=== PATIENT | male | born 1935 | race Two or more races ===

== ENCOUNTER 2018-09-08 07:24 | Inpatient (IN) | payer MEDICARE, MEDICAID ==
[~2018-09-08] VITALS: Ht 160 cm; Wt 82.1 kg
--- NOTE | 2018-09-08 07:39 | NUR ---
ED Nurse Note: Pt from home came in due to SOB and coughing with pleghm started sunday. Audible wheezing noted. Pt is AAO x4, ambulatory with SOB at rest.
[2018-09-08] MEDS ORDERED: ATENOLOL100 MG ORAL (07:41)
[2018-09-08] MEDS ORDERED: OMEPRAZOLE40 M1 ORAL (07:41)
[2018-09-08] MEDS ORDERED: CRESTOR10 M2 ORAL (07:41)
[2018-09-08] MEDS ORDERED: BUPROPION XL150 MG ORAL (07:43)
[2018-09-08] MEDS ORDERED: Albuterol/Ipratropium 3ml neb HHN ONE ×2 (07:45→09:15)
--- NOTE | 2018-09-08 07:49 | Emergency Room Report ---
History of Present Illness General Chief Complaint: Upper Respiratory Illness Source: Patient Present Illness HPI Patient is an 83-year-old male presented after increased difficulty breathing for approximately 3 days. Patient was noted to have increased chest tightness. This is been present for several days but had worsened this morning. He reportedly had been having a nonproductive cough with increased congestion. He denies any prior history of lung disease. Patient denies any productive cough. He is not a smoker. He denies any prior cardiac disease. He denies any leg pain or swelling. He is followed by Dr. Lam Allergies: Coded Allergies: No Known Allergies (Unverified , 09/08/18) Patient History Past Medical History: see triage record Reviewed Nursing Documentation: PMH: Agreed; PSxH: Agreed Nursing Documentation-PMH Past Medical History: No History, Except For Hx Cardiac Problems: Yes - high cholesterol Hx Hypertension: Yes Hx Gastrointestinal Problems: Yes Review of Systems All Other Systems: negative except mentioned in HPI Physical Exam Vital Signs Date Time Temp Pulse Resp B/P (MAP) Pulse Ox O2 Delivery O2 Flow Rate FiO2 09/08/18 07:29 98.2 91 24 132/73 95 Room Air Sp02 EP Interpretation: reviewed, normal General Appearance: normal inspection, alert, GCS 15, mild distress Head: atraumatic ENT: normal ENT inspection, hearing grossly normal, normal voice Neck: normal inspection, full range of motion, supple, no bony tend Respiratory: normal inspection, no respiratory distress, no retraction, wheezing Cardiovascular #1: regular rate, rhythm, no edema Gastrointestinal: normal inspection, normal bowel sounds, non tender, soft, no guarding, no hernia Genitourinary: no CVA tenderness Musculoskeletal: normal inspection, back normal, normal range of motion Neurologic: normal inspection, alert, oriented x3, responsive, yarn hauler III-XII nml as tested, speech normal Psychiatric: normal inspection, judgement/insight normal, mood/affect normal Skin: normal inspection, normal color, no rash Medical Decision Making Diagnostic Impression: Primary Impression: Pneumonitis Additional Impression: SOB (shortness of breath) ER Course . Patient presented for shortness of breath. Differential included but was not limited to anemia, pneumonia, pneumothorax, myocardial infarction, pericardial effusion, congestive heart failure, acidosis. Because of complexity of patient' s case laboratory testing and imaging studies were ordered. Because of complexity of patient's case laboratory testing and imaging studies were ordered. Patient was noted to have unremarkable laboratory testing. Patient continued to be tachypneic as well as having increased wheezing. Patient denied any prior history of smoking or COPD. Chest x-ray read by radiology showed some mild vascular congestion as well as cardiomegaly. Patient was given breathing treatments as well as steroids. Dr. Sim Bello was contacted for inpatient management due to panel physician. Labs Test 09/08/18 08:38 09/08/18 14:35 09/09/18 21:19 09/10/18 06:30 White Blood Count 9.3 K/UL (4.8-10.8) 5.4 K/UL (4.8-10.8) Red Blood Count 4.90 M/UL (4.70-6.10) 4.41 M/UL (4.70-6.10) Hemoglobin 15.0 G/DL (14.2-18.0) 13.5 G/DL (14.2-18.0) Hematocrit 45.0 % (42.0-52.0) 39.8 % (42.0-52.0) Mean Corpuscular Volume 92 FL (80-99) 90 FL (80-99) Mean Corpuscular Hemoglobin 30.7 PG (27.0-31.0) 30.6 PG (27.0-31.0) Mean Corpuscular Hemoglobin Concent 33.4 G/DL (32.0-36.0) 33.9 G/DL (32.0-36.0) Red Cell Distribution Width 13.0 % (11.6-14.8) 12.7 % (11.6-14.8) Platelet Count 180 K/UL (150-450) 149 K/UL (150-450) Mean Platelet Volume 6.6 FL (6.5-10.1) 6.2 FL (6.5-10.1) Neutrophils (%) (Auto) 63.7 % (45.0-75.0) 51.5 % (45.0-75.0) Lymphocytes (%) (Auto) 21.7 % (20.0-45.0) 28.8 % (20.0-45.0) Monocytes (%) (Auto) 12.5 % (1.0-10.0) 15.2 % (1.0-10.0) Eosinophils (%) (Auto) 0.6 % (0.0-3.0) 3.4 % (0.0-3.0) Basophils (%) (Auto) 1.4 % (0.0-2.0) 1.1 % (0.0-2.0) Urine Color Yellow Urine Appearance Clear Urine pH 7 (4.5-8.0) Urine Specific [place] 1.015 (1.005-1.035) Urine Protein Negative (NEGATIVE) Urine Glucose (UA) Negative (NEGATIVE) Urine Ketones Negative (NEGATIVE) Urine Blood Negative (NEGATIVE) Urine Nitrite Negative (NEGATIVE) Urine Bilirubin Negative (NEGATIVE) Urine Urobilinogen Normal MG/DL (0.0-1.0) Urine Leukocyte Esterase Negative (NEGATIVE) Sodium Level 144 MMOL/L (136-145) 141 MMOL/L (136-145) 141 MMOL/L (136-145) Potassium Level 4.0 MMOL/L (3.5-5.1) 4.4 MMOL/L (3.5-5.1) 3.9 MMOL/L (3.5-5.1) Chloride Level 105 MMOL/L (98-107) 106 MMOL/L (98-107) 105 MMOL/L (98-107) Carbon Dioxide Level 31 MMOL/L (21-32) 31 MMOL/L (21-32) 30 MMOL/L (21-32) Anion Gap 8 mmol/L (5-15) 4 mmol/L (5-15) 6 mmol/L (5-15) Blood Urea Nitrogen 19 mg/dL (7-18) 17 mg/dL (7-18) 21 mg/dL (7-18) Creatinine 1.0 MG/DL (0.55-1.30) 1.1 MG/DL (0.55-1.30) 0.8 MG/DL (0.55-1.30) Estimat Glomerular Filtration Rate mL/min (>60) mL/min (>60) mL/min (>60) Glucose Level 142 MG/DL (74-106) 258 MG/DL (74-106) 98 MG/DL (74-106) Calcium Level 9.0 MG/DL (8.5-10.1) 8.9 MG/DL (8.5-10.1) 8.3 MG/DL (8.5-10.1) Total Bilirubin 0.5 MG/DL (0.2-1.0) Aspartate Amino Transf (AST/SGOT) 20 U/L (15-37) Alanine Aminotransferase (ALT/SGPT) 27 U/L (12-78) Alkaline Phosphatase 70 U/L (46-116) Troponin I 0.003 ng/mL (0.000-0.056) Pro-B-Type Natriuretic Peptide 129 pg/mL (0-125) Total Protein 7.5 G/DL (6.4-8.2) Albumin 3.8 G/DL (3.4-5.0) 3.4 G/DL (3.4-5.0) Globulin 3.7 g/dL Albumin/Globulin Ratio 1.0 (1.0-2.7) Lipase 252 U/L (73-393) Phosphorus Level 2.2 MG/DL (2.5-4.9) Hemoglobin A1c 6.3 % (4.3-6.0) EKG Diagnostic Results Rate: normal - 81 Rhythm: NSR ST Segments: other - left anterior fascicular block Last Vital Signs Date Time Temp Pulse Resp B/P (MAP) Pulse Ox O2 Delivery O2 Flow Rate FiO2 09/08/18 07:29 98.2 91 24 132/73 95 Room Air Status: unchanged Disposition: ADMITTED INPATIENT Condition: Serious Scripts Guaifenesin* (ADULT WAL-TUSSIN*) 100 Mg/5 Ml Liquid 5 ML ORAL Q4H, #120 ML Prov: Parth Brandon MD 09/08/18 Albuterol Sulfate* (ALBUTEROL SULFATE MDI*) 8.5 Gm Hfa.aer.ad 2 PUFF INH Q4H PRN for cough/wheezing, #1 EA 0 Refills Prov: Parth Brandon MD 09/08/18 Prednisone* (PREDNISONE*) 20 Mg Tablet 40 MG ORAL DAILY, #8 TAB Prov: Parth Brandon MD 09/08/18 Referrals: NOT CHOSEN IPA/,REFERRING (PCP) Parth Brandon MD Sep 08, 2018 07:49
--- NOTE | 2018-09-08 07:50 | NUR ---
ED Nurse Note: Called RT for breathing treatment. Flu swab sent.
[2018-09-08] MEDS ORDERED: METFORMIN HCL500 M1 ORAL (07:55)
--- NOTE | 2018-09-08 07:58 | NUR ---
ED Nurse Note: RT at the bed side for breathing treatment.
[2018-09-08] MEDS ORDERED: guaiFENesin 100mg/5ml Liq ud ORAL ONE (08:30)
[2018-09-08 08:44] VITALS: BP 122/73
--- NOTE | 2018-09-08 08:45 | NUR ---
ED Nurse Note: Blood and urine collected and sent.
[2018-09-08 08:59] LABS: APPEARANCE,URINE CLEAR; BILIRUBIN, URINE NEGATIVE (NEGATIVE); GLUCOSE, URINE (UA) NEGATIVE (NEGATIVE); KETONES,URINE NEGATIVE (NEGATIVE); LEUKOCYTE ESTERASE ,URINE NEGATIVE (NEGATIVE); NITRITE,URINE NEGATIVE (NEGATIVE); PH,URINE 7 (4.5-8.0); PROTEIN,URINE NEGATIVE (NEGATIVE); UROBILINOGEN,URINE NORMAL MG/DL (0.0-1.0)
[2018-09-08 09:00] LABS: BASOPHILS % (AUTO) 1.4 % (0.0-2.0); EOSINOPHILS % (AUTO) 0.6 % (0.0-3.0); LYMPHOCYTES % (AUTO) 21.7 % (20.0-45.0); MEAN CORPUSCULAR VOLUME 92 FL (80-99); MONOCYTES % (AUTO) 12.5 % (1.0-10.0); NEUTROPHILS % (AUTO) 63.7 % (45.0-75.0); PLATELET COUNT 180 K/UL (150-450); WHITE BLOOD COUNT 9.3 K/UL (4.8-10.8)
[2018-09-08 09:08] LABS: COLOR,URINE YELLOW
[2018-09-08 09:11] LABS: ANION GAP 8 mmol/L (5-15); BLOOD UREA NITROGEN 19 mg/dL (7-18); CARBON DIOXIDE 31 MMOL/L (21-32); CHLORIDE 105 MMOL/L (98-107); SODIUM 144 MMOL/L (136-145)
[2018-09-08 09:20] LABS: ALANINE AMINOTRANSFERASE 27 U/L (12-78); ALBUMIN 3.8 G/DL (3.4-5.0); ALKALINE PHOSPHATASE 70 U/L (46-116); ASPARTATE AMINO TRANSFERASE 20 U/L (15-37); BILIRUBIN,TOTAL 0.5 MG/DL (0.2-1.0)
--- NOTE | 2018-09-08 09:21 | Diagnostic Imaging Report ---
EXAM: XR Chest, 1 View CLINICAL HISTORY: SOB TECHNIQUE: Frontal view of the chest. COMPARISON: No relevant prior studies available. FINDINGS: Lungs: Mild interstitial prominence. No focal infiltrate or consolidation. Pleural space: Unremarkable. No pneumothorax. Heart: Mild cardiomegaly. Mediastinum: Unremarkable. Bones/joints: Unremarkable. IMPRESSION: Hepatomegaly. Mild interstitial prominence. No focal infiltrate or consolidation.
--- NOTE | 2018-09-08 09:21 | NUR ---
ED Nurse Note: RT at the bed side for second breathing treatment.
[2018-09-08] MEDS ORDERED: ALBUTEROL SULF8.5 GM INH ×2 (09:35→12:52)
[2018-09-08] MEDS ORDERED: ADULT WAL-100 MG/5 M ORAL ×2 (09:35→12:52)
[2018-09-08] MEDS ORDERED: PREDNISONE20 MG ORAL ×2 (09:35→12:52)
[2018-09-08 10:50] VITALS: BP 121/58
[2018-09-08] MEDS ORDERED: Albuterol/Ipratropium 3ml neb HHN PRN ×2 (12:45→13:45)
[2018-09-08] MEDS ORDERED: LORazepam Inj 2mg/ml 1ml IV PRN ×2 (12:45→13:45)
[2018-09-08] MEDS ORDERED: Morphine Sulfate 4mg/ml Inj (IV USE ONLY) IVP PRN ×2 (12:45→13:45)
[2018-09-08] MEDS ORDERED: Miralax 17gm pkt ORAL PRN ×2 (12:45→13:45)
[2018-09-08] MEDS ORDERED: Promethazine/Codeine 5ml UD ORAL PRN ×2 (12:45→13:45)
[2018-09-08 12:51] VITALS: BP 123/69
--- NOTE | 2018-09-08 13:07 | NUR ---
ED Nurse Note: Report given to LUZ Santos at ext [phone]. Pt to be transfered to room 239-2 on [facility] per protocol.
--- NOTE | 2018-09-08 13:20 | NUR ---
NURSE NOTES: Received patient from LUZ Pillai. Patient VS stable at this time. Patient BP 123/64, HR 88, SpO2 96%, and 20 RR. Patient denies pain or discomfort at this time. Patient alert and oriented and primarily farsi speaking. Patient at the bedside. Patient is on 2L NC at this time with saturation of 99-100%. Patient has saturation of 96% on RA. patient ambulates to the restroom with steady gait. Patient labs within defined limits at this time. Patient has a right hand 20G PIV that is patient and asymptomatic at this time. Patient in bed with bed alarm on and call light in reach at this time.
[2018-09-08 15:05] LABS: ALBUMIN 3.4 G/DL (3.4-5.0); ANION GAP 4 mmol/L (5-15); BLOOD UREA NITROGEN 17 mg/dL (7-18); CALCIUM 8.9 MG/DL (8.5-10.1); CARBON DIOXIDE 31 MMOL/L (21-32); CHLORIDE 106 MMOL/L (98-107); CREATININE 1.1 MG/DL (0.55-1.30); PHOSPHORUS 2.2 MG/DL (2.5-4.9); POTASSIUM 4.4 MMOL/L (3.5-5.1); SODIUM 141 MMOL/L (136-145)
[2018-09-08] MEDS: Vancomycin 500mg/D5W 110ml IVPB SCH ×2 (15:32)
[2018-09-08] MEDS ORDERED: 1/2 NS 1000ml IV ONE (16:26)
[2018-09-08] MEDS ORDERED: Tubing IV Secondary IV ONE (16:26)
[2018-09-08] MEDS ORDERED: NovoLOG Insulin Flexpen SUBQ SCH (16:30)
[2018-09-08] MEDS: NovoLOG Insulin Flexpen SUBQ SCH ×2 (17:01→21:26)
[2018-09-08] MEDS: Cefepime HCl 2 GM in D5W 110 ML IV SCH (17:04)
--- NOTE | 2018-09-08 17:14 | NUR ---
NURSE NOTES: Medication list reviewed with patient with the help of his son as a wood barker. Patient does not recognize the names of the blood pressure medications listed previously on his medication reconciliation. Patient states that he takes a blood pressure medication but does not know what it is called.
--- NOTE | 2018-09-08 19:20 | NUR ---
HAND-OFF: Report given to LUZ Haines. Patient VS stable at this time with no sign of acute distress. patient denies pain or discomfort at this time.
--- NOTE | 2018-09-08 19:25 | NUR ---
NURSE NOTES: Observed pt lying on the bed, awake, alert and oriented x4, denies any pain at this time. SR with personnel monitor. On NC 3L with no signs of SOB. IV on R H 20G running 1/2 NS at 50cc/hr. Bed in the lowest position. Side rails up x2. Will continue to monitor.
[2018-09-08 20:00] VITALS: BP 131/83
[2018-09-08] MEDS ORDERED: Heparin 5000 units/ml inj SUBQ SCH (21:00)
[2018-09-08] MEDS ORDERED: Cefepime HCl 2 GM in D5W 110 ML IV SCH (21:00)
[2018-09-08] MEDS: Heparin 5000 units/ml inj SUBQ SCH (21:25)
[2018-09-08 22:50] VITALS: BP 131/83
[2018-09-08] MEDS ORDERED: Vancomycin 1 GM in D5W 275 ML IV SCH ×4 (23:00)
[2018-09-09] VITALS: BP 120/70
[2018-09-09 04:00] VITALS: BP 120/66
[2018-09-09] MEDS: Vancomycin 500mg/D5W 110ml IVPB SCH ×2 (04:11)
--- NOTE | 2018-09-09 04:35 | NUR ---
NURSE NOTES: Pt c/o coughing and PRN med given. Will continue to monitor.
[2018-09-09] MEDS: NovoLOG Insulin Flexpen SUBQ SCH ×4 (06:28→21:00)
--- NOTE | 2018-09-09 07:24 | NUR ---
NURSE NOTES: Received report from LUZ Stokes. Patient is resting in bed in stable condition. No s/sx of SOB, breathing is even and unlabored. Denies any presence of pain or discomfort at this time. Bed is in lowest position, brakes engaged. Call light is kept within easy reach. Will continue to monitor patient.
--- NOTE | 2018-09-09 07:33 | NUR ---
HAND-OFF: Report given to LUZ aMrquez.
[2018-09-09 08:00] VITALS: BP 126/62
[2018-09-09] MEDS: Heparin 5000 units/ml inj SUBQ SCH ×2 (08:18→21:00)
--- NOTE | 2018-09-09 11:10 | NUR ---
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 Mild interstitial prominence. No focal infiltrate or consolidation. IS:Cefepime IV Heparin SUBQ NovoLog SUBQ Vancomycin IVPB Codeine PO NS IV x1L SDU STATUS DC PLAN: RETURN HOME
[2018-09-09 12:00] VITALS: BP 148/79
--- NOTE | 2018-09-09 12:18 | Consultation ---
History of Present Illness General Date patient seen: Sep 09, 2018 Chief Complaint: Upper Respiratory Illness Present Illness HPI 83-year-old male with hx of DM, no Tobacco, HTN, presented to ER with productive cough and increased difficulty breathing for approximately 3 days. He had also some chest tightness for several days but had worsened this morning. He denies any prior cardiac disease. Allergies: Coded Allergies: No Known Allergies (Unverified , 09/08/18) Medication History Scheduled Atenolol* (Tenormin*), 100 MG ORAL DAILY, (Reported) Bupropion Xl* (Bupropion Xl*), 300 MG ORAL Q24H, (Reported) Guaifenesin* (Adult Wal-Tussin*), 5 ML ORAL Q4H Metformin Hcl* (Metformin Hcl*), 500 MG ORAL TWICE A DAY, (Reported) Omeprazole (Omeprazole), 40 MG ORAL DAILY, (Reported) Prednisone* (Prednisone*), 40 MG ORAL DAILY Rosuvastatin Calcium* (Crestor*), 5 MG ORAL DAILY, (Reported) Scheduled PRN Albuterol Sulfate* (Albuterol Sulfate Mdi*), 2 PUFF INH Q4H PRN for cough/ wheezing Patient History Healthcare decision maker Resuscitation status Full Code Advanced Directive on File No Past Medical/Surgical History Past Medical/Surgical History: (1) Diabetes mellitus (2) History of hypertension Review of Systems Respiratory: Reports: shortness of breath, wheezing Physical Exam General Appearance: WD/WN Lines, tubes and drains: peripheral HEENT: normocephalic, atraumatic Neck: non-tender, normal alignment Respiratory/Chest: chest wall non-tender, rhonchi - left, rhonchi - right Cardiovascular/Chest: normal peripheral pulses, normal rate, regular rhythm Abdomen: normal bowel sounds, non tender Genitourinary/Rectal: normal rectal exam Skin Exam: normal pigmentation 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, no motor/sensory deficits Last 24 Hour Vital Signs Date Time Temp Pulse Resp B/P (MAP) Pulse Ox O2 Delivery O2 Flow Rate FiO2 09/09/18 09:00 Nasal Cannula 3.0 09/09/18 08:00 61 09/09/18 08:00 3.0 09/09/18 08:00 98.8 70 20 126/62 (83) 97 09/09/18 07:35 88 18 Nasal Cannula 3.0 32 09/09/18 07:34 98 Nasal Cannula 2.0 28 09/09/18 07:34 Nasal Cannula 3.0 32 09/09/18 04:00 70 09/09/18 04:00 3.0 09/09/18 04:00 98.6 70 20 120/66 (84) 96 09/09/18 00:00 70 09/09/18 00:00 98.6 67 24 120/70 (87) 97 09/08/18 22:50 98.8 88 20 131/83 (99) 96 09/08/18 21:52 96 Nasal Cannula 2.0 28 09/08/18 21:52 72 16 Nasal Cannula 2.0 28 09/08/18 21:52 Nasal Cannula 2.0 28 09/08/18 21:00 Nasal Cannula 3.0 09/08/18 20:00 3.0 09/08/18 20:00 98.8 88 20 131/83 (99) 96 09/08/18 20:00 86 09/08/18 16:00 Nasal Cannula 3.0 09/08/18 16:00 92 09/08/18 16:00 3.0 09/08/18 13:29 95 09/08/18 13:20 Nasal Cannula 2.0 09/08/18 13:11 98.6 99 20 123/69 98 Nasal Cannula 3.0 21 09/08/18 13:00 2.0 09/08/18 12:51 99 20 123/69 98 Nasal Cannula 3.0 Intake and Output 09/08/18 09/09/18 18:59 06:59 Intake Total 520 ml 1070 ml Balance 520 ml 1070 ml Intake Oral 360 ml IV Total 520 ml 710 ml # Voids 4 Laboratory Tests Test 09/08/18 14:35 Sodium Level 141 MMOL/L (136-145) Potassium Level 4.4 MMOL/L (3.5-5.1) Chloride Level 106 MMOL/L (98-107) Carbon Dioxide Level 31 MMOL/L (21-32) Anion Gap 4 mmol/L (5-15) L Blood Urea Nitrogen 17 mg/dL (7-18) Creatinine 1.1 MG/DL (0.55-1.30) Estimat Glomerular Filtration Rate mL/min (>60) Glucose Level 258 MG/DL (74-106) #H Calcium Level 8.9 MG/DL (8.5-10.1) Phosphorus Level 2.2 MG/DL (2.5-4.9) L Albumin 3.4 G/DL (3.4-5.0) Microbiology Date/Time Source Procedure Growth Status 09/08/18 17:51 Sputum Gram Stain Pending Resulted 09/08/18 17:51 Sputum Sputum Culture - Preliminary NORMAL UPPER RESPIRATORY LUIS CARLOS AT 24 ... Resulted Height (Feet): 5 Height (Inches): 3.00 Weight (Pounds): 166 Medications Current Medications Medications (Trade) Dose Ordered Sig/Elio Route PRN Reason Start Time Stop Time Status Last Admin Dose Admin Acetaminophen (Tylenol) 650 mg Q4H PRN ORAL FEVER (temp>100.5F) 09/08/18 13:45 10/08/18 13:44 Albuterol/ Ipratropium (Albuterol/ Ipratropium) 3 ml Q4H PRN HHN Shortness of Breath 09/08/18 13:45 09/13/18 13:44 Cefepime HCl 2 gm/ Dextrose 110 ml @ 220 mls/hr Q24H IV 09/08/18 17:00 09/15/18 16:59 09/08/18 17:04 Dextrose (Dextrose 50%) 25 ml Q30M PRN IV Hypoglycemia 09/08/18 13:45 10/08/18 13:44 Dextrose (Dextrose 50%) 50 ml Q30M PRN IV Hypoglycemia 09/08/18 13:45 10/08/18 13:44 Heparin Sodium (Porcine) (Heparin 5000 units/ml) 5,000 units EVERY 12 HOURS SUBQ 09/08/18 21:00 10/08/18 20:59 09/09/18 08:18 Insulin Aspart (NovoLOG) BEFORE MEALS AND HS SUBQ 09/08/18 16:30 10/08/18 16:29 09/09/18 06:28 Lorazepam (Ativan 2mg/ml 1ml) 2 mg Q2H PRN IV For Anxiety 09/08/18 13:45 09/15/18 13:44 Morphine Sulfate (Morphine Sulfate) 4 mg Q4H PRN IVP Severe Pain (Pain Scale 7-10) 09/08/18 13:45 09/15/18 13:44 Ondansetron HCl (Zofran) 4 mg Q6H PRN IVP Nausea & Vomiting 09/08/18 13:45 10/08/18 13:44 Polyethylene Glycol (Miralax) 17 gm DAILYPRN PRN ORAL Constipation 09/08/18 13:45 10/08/18 13:44 Promethazine HCl/ Codeine (Phenergan with Codeine) 5 ml Q4H PRN ORAL For Cough 09/08/18 13:45 10/08/18 13:44 09/09/18 04:25 Sodium Chloride 1,000 ml @ 50 mls/hr Q20H IV 09/08/18 13:40 10/08/18 13:39 09/09/18 09:40 Vancomycin HCl (Vanco rx to dose) 1 ea DAILY PRN MISC PER PHARMACY 09/08/18 13:45 10/08/18 13:44 Vancomycin HCl 500 mg/Dextrose 110 ml @ 110 mls/hr Q12H IVPB 09/08/18 16:00 09/13/18 15:59 09/09/18 04:11 Assessment/Plan Problem List: (1) Acute bronchitis ICD Codes: J20.9 - Acute bronchitis, unspecified SNOMED: 85111440 (2) Pneumonitis ICD Codes: J18.9 - Pneumonia, unspecified organism SNOMED: 949878129 (3) Diabetes mellitus ICD Codes: E11.9 - Type 2 diabetes mellitus without complications SNOMED: 82183582 (4) History of hypertension ICD Codes: Z86.79 - Personal history of other diseases of the circulatory system SNOMED: 314631646 Assessment/Plan check sputum iv abx respiratory treatment antitussives sliding scale dvt prophylaxis Wolfgang Buchanan MD Sep 09, 2018 12:18
[2018-09-09] MEDS: Promethazine/Codeine 5ml UD ORAL SCH ×2 (12:32→17:03)
--- NOTE | 2018-09-09 14:24 | Consultation ---
History of Present Illness General Date patient seen: Sep 09, 2018 Chief Complaint: Upper Respiratory Illness Present Illness HPI 83 y/o M with hx of DM2, HTN, HLD presents to ED on 09/08 with productive cough and worsening SOB for 3 days. Also reported chest tightness for several days. Denied leg pain or swelling. Allergies: Coded Allergies: No Known Allergies (Unverified , 09/08/18) Medication History Scheduled Atenolol* (Tenormin*), 100 MG ORAL DAILY, (Reported) Bupropion Xl* (Bupropion Xl*), 300 MG ORAL Q24H, (Reported) Guaifenesin* (Adult Wal-Tussin*), 5 ML ORAL Q4H Metformin Hcl* (Metformin Hcl*), 500 MG ORAL TWICE A DAY, (Reported) Omeprazole (Omeprazole), 40 MG ORAL DAILY, (Reported) Prednisone* (Prednisone*), 40 MG ORAL DAILY Rosuvastatin Calcium* (Crestor*), 5 MG ORAL DAILY, (Reported) Scheduled PRN Albuterol Sulfate* (Albuterol Sulfate Mdi*), 2 PUFF INH Q4H PRN for cough/ wheezing Patient History Healthcare decision maker Resuscitation status Full Code Advanced Directive on File No Patient History Narrative Pmhx: as above Shx:He is not a smoker. 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, no motor/sensory deficits Last 24 Hour Vital Signs Date Time Temp Pulse Resp B/P (MAP) Pulse Ox O2 Delivery O2 Flow Rate FiO2 09/09/18 12:00 3.0 09/09/18 12:00 94 09/09/18 12:00 98.2 91 20 148/79 (102) 97 09/09/18 09:00 Nasal Cannula 3.0 09/09/18 08:00 61 09/09/18 08:00 3.0 09/09/18 08:00 98.8 70 20 126/62 (83) 97 09/09/18 07:35 88 18 Nasal Cannula 3.0 32 09/09/18 07:34 98 Nasal Cannula 2.0 28 09/09/18 07:34 Nasal Cannula 3.0 32 09/09/18 04:00 70 09/09/18 04:00 3.0 09/09/18 04:00 98.6 70 20 120/66 (84) 96 09/09/18 00:00 70 09/09/18 00:00 98.6 67 24 120/70 (87) 97 09/08/18 22:50 98.8 88 20 131/83 (99) 96 09/08/18 21:52 96 Nasal Cannula 2.0 28 09/08/18 21:52 72 16 Nasal Cannula 2.0 28 09/08/18 21:52 Nasal Cannula 2.0 28 09/08/18 21:00 Nasal Cannula 3.0 09/08/18 20:00 3.0 09/08/18 20:00 98.8 88 20 131/83 (99) 96 09/08/18 20:00 86 09/08/18 16:00 Nasal Cannula 3.0 09/08/18 16:00 92 09/08/18 16:00 3.0 Intake and Output 09/08/18 09/09/18 19:00 07:00 Intake Total 570 ml 1070 ml Balance 570 ml 1070 ml Intake Oral 360 ml IV Total 570 ml 710 ml # Voids 4 Laboratory Tests Test 09/08/18 14:35 Sodium Level 141 MMOL/L (136-145) Potassium Level 4.4 MMOL/L (3.5-5.1) Chloride Level 106 MMOL/L (98-107) Carbon Dioxide Level 31 MMOL/L (21-32) Anion Gap 4 mmol/L (5-15) L Blood Urea Nitrogen 17 mg/dL (7-18) Creatinine 1.1 MG/DL (0.55-1.30) Estimat Glomerular Filtration Rate mL/min (>60) Glucose Level 258 MG/DL (74-106) #H Calcium Level 8.9 MG/DL (8.5-10.1) Phosphorus Level 2.2 MG/DL (2.5-4.9) L Albumin 3.4 G/DL (3.4-5.0) Microbiology Date/Time Source Procedure Growth Status 09/08/18 17:51 Sputum Gram Stain - Final Resulted 09/08/18 17:51 Sputum Sputum Culture - Preliminary NORMAL UPPER RESPIRATORY MELISSA AT 24 ... Resulted Height (Feet): 5 Height (Inches): 3.00 Weight (Pounds): 166 Medications Current Medications Medications (Trade) Dose Ordered Sig/Elio Route PRN Reason Start Time Stop Time Status Last Admin Dose Admin Acetaminophen (Tylenol) 650 mg Q4H PRN ORAL FEVER (temp>100.5F) 09/08/18 13:45 10/08/18 13:44 Albuterol/ Ipratropium (Albuterol/ Ipratropium) 3 ml Q4H PRN HHN Shortness of Breath 09/08/18 13:45 09/13/18 13:44 Cefepime HCl 2 gm/ Dextrose 110 ml @ 220 mls/hr Q24H IV 09/08/18 17:00 09/15/18 16:59 09/08/18 17:04 Dextrose (Dextrose 50%) 25 ml Q30M PRN IV Hypoglycemia 09/08/18 13:45 10/08/18 13:44 Dextrose (Dextrose 50%) 50 ml Q30M PRN IV Hypoglycemia 09/08/18 13:45 10/08/18 13:44 Heparin Sodium (Porcine) (Heparin 5000 units/ml) 5,000 units EVERY 12 HOURS SUBQ 09/08/18 21:00 10/08/18 20:59 09/09/18 08:18 Insulin Aspart (NovoLOG) BEFORE MEALS AND HS SUBQ 09/08/18 16:30 10/08/18 16:29 09/09/18 06:28 Lorazepam (Ativan 2mg/ml 1ml) 2 mg Q2H PRN IV For Anxiety 09/08/18 13:45 09/15/18 13:44 Morphine Sulfate (Morphine Sulfate) 4 mg Q4H PRN IVP Severe Pain (Pain Scale 7-10) 09/08/18 13:45 09/15/18 13:44 Ondansetron HCl (Zofran) 4 mg Q6H PRN IVP Nausea & Vomiting 09/08/18 13:45 10/08/18 13:44 Polyethylene Glycol (Miralax) 17 gm DAILYPRN PRN ORAL Constipation 09/08/18 13:45 10/08/18 13:44 Promethazine HCl/ Codeine (Phenergan with Codeine) 5 ml EVERY 6 HOURS ORAL 09/09/18 12:30 10/08/18 12:29 09/09/18 12:32 Vancomycin HCl (Vanco rx to dose) 1 ea DAILY PRN MISC PER PHARMACY 09/08/18 13:45 10/08/18 13:44 Vancomycin HCl 500 mg/Dextrose 110 ml @ 110 mls/hr Q12H IVPB 09/08/18 16:00 09/13/18 15:59 09/09/18 04:11 Assessment/Plan Assessment/Plan Abx: IV vancomycin 09/08- Cefepime 09/08- Assessment: Probable early PNA vs Acute bronchitis -CXR: Hepatomegaly. Mild interstitial prominence. No focal infiltrate or consolidation. -influenza sc neg -sp cx normal resp melissa Afebrile No leukocytosis DM2 HTN HLD Plan: -D/c empiric IV vancomycin #2 -Continue empiric Cefepime #2 pending cultures -f/u cx -Monitor CBC/CMP, temperatures -CXR 2v am Thank you for this consultation. Will continue to follow along with you. Discussed with Adrienne Blanc M.D. Sep 09, 2018 14:24
[2018-09-09 16:00] VITALS: BP 127/75
[2018-09-09] MEDS: Cefepime HCl 2 GM in D5W 110 ML IV SCH (17:03)
--- NOTE | 2018-09-09 19:12 | NUR ---
HAND-OFF: Report given to LUZ Darnell.
--- NOTE | 2018-09-09 19:13 | NUR ---
NURSE NOTES: Received bedside report from LUZ Marquez.Patient stable,A&Ox4,SR on engineering faculty,tolerated N/C with 3 L/min,lungs diminished sounds on auscultation,BS active in all quadrants,ambulatory stable,bed secured in a low safety position,call light within a reach,will continue to monitor and follow POC
[2018-09-09 20:00] VITALS: BP 133/75
--- NOTE | 2018-09-09 20:02 | History and Physical Report ---
DATE OF ADMISSION: 09/08/2018 TIME SEEN: On 09/09/2018 at 12 noon. CONSULTANTS: 1. Wolfgang Buchanan M.D. 2. Isaac Rice M.D. 3. Leonel Crews M.D. CHIEF COMPLAINT: Shortness of breath, chest tightness, and diabetes. BRIEF HISTORY: This is an 83-year-old male, who lives at home, presents with substernal chest pain, intermittent, tightness since yesterday with short of breath and coughing, came to [place], diagnosed as above and admitted to [facility] for further care. Currently, slightly anxious, in bed, slight short of breath, no complaint. REVIEW OF SYSTEMS: Slight chest pain. Slight short of breath. No nausea, vomiting, or diarrhea. PAST MEDICAL HISTORY: Includes diabetes, type 2. PAST SURGICAL HISTORY: Unknown. ALLERGIES: Denies. MEDICATIONS: Include promethazine, vancomycin, heparin, cefepime, insulin, IV fluids, Zofran, and morphine. SOCIAL HISTORY: Unable to obtain. PHYSICAL EXAMINATION: GENERAL: The patient is O2 NC, calm. He is slightly anxious with slight short of breath. VITAL SIGNS: Temperature is 98 degrees, pulse 61, respirations 20, and blood pressure 126/62. CARDIOVASCULAR: No murmur. LUNGS: Poor exchange. ABDOMEN: Bowel sounds distant. EXTREMITIES: Show no cyanosis or edema. NEUROLOGIC: The patient moves all extremities, slightly weak. LABORATORY AND DIAGNOSTIC DATA: Labs at this time show CBC is normal. BMP show glucose 289, otherwise BMP is normal. Troponin 0.003. BNP is 129. Urinalysis shows normal. ASSESSMENT: 1. Shortness of breath. 2. Chest tightness. 3. Diabetes. PLAN: 1. Blood sugar and pain control. 2. Dietary followup. 3. O2 and pulmonary treatment. 4. Troponin q. 8h. x3. 5. EKG in the a.m. 6. PT and dietary evaluation. 7. CBC and BMP in the morning. Sim Bello D.O. DR: DEDE JOB#: [id number] CC:
--- NOTE | 2018-09-09 20:55 | Cardiology Progress Note ---
Assessment/Plan Assessment/Plan The patient is seen and examined, full cardiology consult note will be dictated. Objective Last 24 Hour Vital Signs Date Time Temp Pulse Resp B/P (MAP) Pulse Ox O2 Delivery O2 Flow Rate FiO2 09/09/18 20:00 3.0 09/09/18 20:00 98.7 77 24 133/75 (94) 98 09/09/18 19:27 69 09/09/18 16:00 99.0 69 22 127/75 (92) 97 09/09/18 16:00 3.0 09/09/18 16:00 92 09/09/18 12:00 3.0 09/09/18 12:00 94 09/09/18 12:00 98.2 91 20 148/79 (102) 97 09/09/18 09:00 Nasal Cannula 3.0 09/09/18 08:00 61 09/09/18 08:00 3.0 09/09/18 08:00 98.8 70 20 126/62 (83) 97 09/09/18 07:35 88 18 Nasal Cannula 3.0 32 09/09/18 07:34 98 Nasal Cannula 2.0 28 09/09/18 07:34 Nasal Cannula 3.0 32 09/09/18 04:00 70 09/09/18 04:00 3.0 09/09/18 04:00 98.6 70 20 120/66 (84) 96 09/09/18 00:00 70 09/09/18 00:00 98.6 67 24 120/70 (87) 97 09/08/18 22:50 98.8 88 20 131/83 (99) 96 09/08/18 21:52 96 Nasal Cannula 2.0 28 09/08/18 21:52 72 16 Nasal Cannula 2.0 28 09/08/18 21:52 Nasal Cannula 2.0 28 09/08/18 21:00 Nasal Cannula 3.0 Intake and Output 09/08/18 09/09/18 19:00 07:00 Intake Total 570 ml 1070 ml Balance 570 ml 1070 ml Intake Oral 360 ml IV Total 570 ml 710 ml # Voids 4 Microbiology Date/Time Source Procedure Growth Status 09/08/18 17:51 Sputum Gram Stain - Final Resulted 09/08/18 17:51 Sputum Sputum Culture - Preliminary NORMAL UPPER RESPIRATORY LUIS CARLOS AT 24 ... Resulted 09/08/18 07:45 Nasal Nares Influenza Types A,B Antigen (PAM) - Final Complete Leonel Crews MD Sep 09, 2018 20:54
[2018-09-09] MEDS ORDERED: Lexiscan 0.4mg/5ml syringe IV PRN (21:04)
[2018-09-09] MEDS ORDERED: Albuterol/Ipratropium 3ml neb HHN PRN (21:45)
[2018-09-09] MEDS ORDERED: LORazepam Inj 2mg/ml 1ml IV PRN (21:45)
[2018-09-09] MEDS ORDERED: Morphine Sulfate 4mg/ml Inj (IV USE ONLY) IVP PRN (21:45)
--- NOTE | 2018-09-09 22:10 | NUR ---
NURSE NOTES: Patient transferred to [facility] by striker bed,patient stable,tolerated portable oxygen with 3 L/min well,no respiratory distress noted,V/S stable,belongings list signed with two nurses,report given to LUZ Kaba.
--- NOTE | 2018-09-09 22:15 | NUR ---
NURSE NOTES: Received patient in bed, transfer from [facility], awake, alert, oriented x4, no acute distress noted, VSS, on 3 liters oxygen via NC, call light is within reach, bed is in lowest position, alarm is on, belongings list signed and verified. Will continue to monitor for comfort and safety.
[2018-09-10 00:06] VITALS: BP 133/73
[2018-09-10] MEDS: Promethazine/Codeine 5ml UD ORAL SCH ×5 (00:16→23:56)
[2018-09-10 04:29] VITALS: BP 116/66
[2018-09-10] MEDS: NovoLOG Insulin Flexpen SUBQ SCH ×4 (06:30→20:59)
[2018-09-10 07:20] LABS: ANION GAP 6 mmol/L (5-15); BLOOD UREA NITROGEN 21 mg/dL (7-18); CALCIUM 8.3 MG/DL (8.5-10.1); CARBON DIOXIDE 30 MMOL/L (21-32); CHLORIDE 105 MMOL/L (98-107); CREATININE 0.8 MG/DL (0.55-1.30); POTASSIUM 3.9 MMOL/L (3.5-5.1); SODIUM 141 MMOL/L (136-145)
[2018-09-10 07:24] LABS: BASOPHILS % (AUTO) 1.1 % (0.0-2.0); EOSINOPHILS % (AUTO) 3.4 % (0.0-3.0); HEMATOCRIT 39.8 % (42.0-52.0); HEMOGLOBIN 13.5 G/DL (14.2-18.0); LYMPHOCYTES % (AUTO) 28.8 % (20.0-45.0); MEAN CORPUSCULAR VOLUME 90 FL (80-99); MONOCYTES % (AUTO) 15.2 % (1.0-10.0); NEUTROPHILS % (AUTO) 51.5 % (45.0-75.0); PLATELET COUNT 149 K/UL (150-450); RED BLOOD COUNT 4.41 M/UL (4.70-6.10); RED CELL DISTRIBUTION WIDTH 12.7 % (11.6-14.8); WHITE BLOOD COUNT 5.4 K/UL (4.8-10.8)
--- NOTE | 2018-09-10 07:24 | NUR ---
HAND-OFF: Report given to Lili ESCOBAR.
[2018-09-10 08:00] VITALS: BP 130/76
--- NOTE | 2018-09-10 08:13 | NUR ---
NURSE NOTES: Patient is alert and oriented X4. Patient is on 3 liters oxygen via nasal cannula. Side rails are up X2. Bed is locked, in lowest position, and call light is within reach. Will continue to monitor.
[2018-09-10] MEDS: Heparin 5000 units/ml inj SUBQ SCH ×2 (09:00→21:00)
[2018-09-10 12:00] VITALS: BP 122/66
[2018-09-10] MEDS ORDERED: Miralax 17gm pkt ORAL PRN (13:45)
--- NOTE | 2018-09-10 14:09 | Infectious Diseases Prog Note ---
Assessment/Plan Assessment/Plan Assessment: Probable early PNA vs Acute bronchitis -CXR: Hepatomegaly. Mild interstitial prominence. No focal infiltrate or consolidation. -influenza sc neg -sp cx normal resp melissa Afebrile No leukocytosis DM2 HTN HLD Plan: -Continue empiric Cefepime #3 pending cultures -09/09 SP IV vancomycin #2 -f/u cx -Monitor CBC/CMP, temperatures -f/u CXR 2v am Thank you for this consultation. Will continue to follow along with you. Discussed with RN. Subjective Allergies: Coded Allergies: No Known Allergies (Unverified , 09/08/18) Subjective afebrile at RA no leukocytosis transferred from [facility] to med/surge Objective Vital Signs Last 24 Hour Vital Signs Date Time Temp Pulse Resp B/P (MAP) Pulse Ox O2 Delivery O2 Flow Rate FiO2 09/10/18 12:00 97.9 75 18 122/66 (84) 95 09/10/18 08:15 95 Room Air 21 09/10/18 08:15 Room Air 21 09/10/18 08:15 74 16 Room Air 21 09/10/18 08:00 98.2 74 16 130/76 (94) 95 09/10/18 08:00 Nasal Cannula 3.0 09/10/18 04:29 98.1 66 18 116/66 (83) 09/10/18 00:06 99.0 70 18 133/73 (93) 09/09/18 21:00 Nasal Cannula 3.0 09/09/18 20:55 Nasal Cannula 3.0 32 09/09/18 20:55 76 18 Nasal Cannula 3.0 32 09/09/18 20:55 96 Nasal Cannula 3.0 32 09/09/18 20:00 3.0 09/09/18 20:00 98.7 77 24 133/75 (94) 98 09/09/18 19:27 69 09/09/18 16:00 99.0 69 22 127/75 (92) 97 09/09/18 16:00 3.0 09/09/18 16:00 92 Height (Feet): 5 Height (Inches): 3.00 Weight (Pounds): 166 Objective General Appearance: WD/WN Lines, tubes and drains: peripheral HEENT: normocephalic, atraumatic Neck: non-tender, normal alignment Respiratory/Chest: chest wall non-tender, rhonchi - left, rhonchi - right Cardiovascular/Chest: normal peripheral pulses, normal rate, regular rhythm Abdomen: normal bowel sounds, non tender Skin Exam: normal pigmentation 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, no motor/sensory deficits Microbiology Date/Time Source Procedure Growth Status 09/08/18 08:50 Blood Blood Culture - Preliminary NO GROWTH AFTER 24 HOURS Resulted 09/08/18 08:40 Blood Blood Culture - Preliminary NO GROWTH AFTER 24 HOURS Resulted 09/08/18 17:51 Sputum Gram Stain - Final Complete 09/08/18 17:51 Sputum Sputum Culture - Final NORMAL UPPER RESPIRATORY MELISSA PRESENT Complete 09/08/18 07:45 Nasal Nares Influenza Types A,B Antigen (PAM) - Final Complete Laboratory Tests Test 09/09/18 21:19 09/10/18 06:30 Hemoglobin A1c 6.3 % (4.3-6.0) H White Blood Count 5.4 K/UL (4.8-10.8) Red Blood Count 4.41 M/UL (4.70-6.10) L Hemoglobin 13.5 G/DL (14.2-18.0) L Hematocrit 39.8 % (42.0-52.0) L Mean Corpuscular Volume 90 FL (80-99) Mean Corpuscular Hemoglobin 30.6 PG (27.0-31.0) Mean Corpuscular Hemoglobin Concent 33.9 G/DL (32.0-36.0) Red Cell Distribution Width 12.7 % (11.6-14.8) Platelet Count 149 K/UL (150-450) L Mean Platelet Volume 6.2 FL (6.5-10.1) L Neutrophils (%) (Auto) 51.5 % (45.0-75.0) Lymphocytes (%) (Auto) 28.8 % (20.0-45.0) Monocytes (%) (Auto) 15.2 % (1.0-10.0) H Eosinophils (%) (Auto) 3.4 % (0.0-3.0) H Basophils (%) (Auto) 1.1 % (0.0-2.0) Sodium Level 141 MMOL/L (136-145) Potassium Level 3.9 MMOL/L (3.5-5.1) Chloride Level 105 MMOL/L (98-107) Carbon Dioxide Level 30 MMOL/L (21-32) Anion Gap 6 mmol/L (5-15) Blood Urea Nitrogen 21 mg/dL (7-18) H Creatinine 0.8 MG/DL (0.55-1.30) Estimat Glomerular Filtration Rate mL/min (>60) Glucose Level 98 MG/DL (74-106) Calcium Level 8.3 MG/DL (8.5-10.1) L Current Medications Medications (Trade) Dose Ordered Sig/Elio Route PRN Reason Start Time Stop Time Status Last Admin Dose Admin Acetaminophen (Tylenol) 650 mg Q4H PRN ORAL FEVER (temp>100.5F) 09/09/18 21:45 10/08/18 13:44 Albuterol/ Ipratropium (Albuterol/ Ipratropium) 3 ml Q4H PRN HHN Shortness of Breath 09/09/18 21:45 09/13/18 13:44 Cefepime HCl 2 gm/ Dextrose 110 ml @ 220 mls/hr Q24H IV 09/10/18 17:00 09/15/18 16:59 Dextrose (Dextrose 50%) 25 ml Q30M PRN IV Hypoglycemia 09/09/18 21:45 10/08/18 13:44 Dextrose (Dextrose 50%) 50 ml Q30M PRN IV Hypoglycemia 09/09/18 21:45 10/08/18 13:44 Heparin Sodium (Porcine) (Heparin 5000 units/ml) 5,000 units EVERY 12 HOURS SUBQ 09/10/18 09:00 10/08/18 20:59 Insulin Aspart (NovoLOG) BEFORE MEALS AND HS SUBQ 09/10/18 06:30 10/08/18 16:29 Lorazepam (Ativan 2mg/ml 1ml) 2 mg Q2H PRN IV For Anxiety 09/09/18 21:45 09/15/18 13:44 Morphine Sulfate (Morphine Sulfate) 4 mg Q4H PRN IVP Severe Pain (Pain Scale 7-10) 09/09/18 21:45 09/15/18 13:44 Ondansetron HCl (Zofran) 4 mg Q6H PRN IVP Nausea & Vomiting 09/10/18 01:45 10/08/18 13:44 Polyethylene Glycol (Miralax) 17 gm DAILYPRN PRN ORAL Constipation 09/10/18 13:45 10/08/18 13:44 Promethazine HCl/ Codeine (Phenergan with Codeine) 5 ml EVERY 6 HOURS ORAL 09/10/18 00:00 10/08/18 12:29 09/10/18 12:01 Adrienne Aquino M.D. Sep 10, 2018 14:09
--- NOTE | 2018-09-10 14:19 | Pulmonology Progress Note ---
Assessment/Plan Problems: (1) Acute bronchitis (2) Pneumonitis (3) Diabetes mellitus (4) History of hypertension Assessment/Plan improving slowly sputum is negative so far echo reviewed, EF 60% continue abx taper steroids pt/ot dvt prophylaxis. Subjective ROS Limited/Unobtainable: No Constitutional: Reports: no symptoms HEENT: Repors: no symptoms Allergies: Coded Allergies: No Known Allergies (Unverified , 09/08/18) Objective Last 24 Hour Vital Signs Date Time Temp Pulse Resp B/P (MAP) Pulse Ox O2 Delivery O2 Flow Rate FiO2 09/10/18 12:00 97.9 75 18 122/66 (84) 95 09/10/18 08:15 95 Room Air 21 09/10/18 08:15 Room Air 21 09/10/18 08:15 74 16 Room Air 21 09/10/18 08:00 98.2 74 16 130/76 (94) 95 09/10/18 08:00 Nasal Cannula 3.0 09/10/18 04:29 98.1 66 18 116/66 (83) 09/10/18 00:06 99.0 70 18 133/73 (93) 09/09/18 21:00 Nasal Cannula 3.0 09/09/18 20:55 Nasal Cannula 3.0 32 09/09/18 20:55 76 18 Nasal Cannula 3.0 32 09/09/18 20:55 96 Nasal Cannula 3.0 32 09/09/18 20:00 3.0 09/09/18 20:00 98.7 77 24 133/75 (94) 98 09/09/18 19:27 69 09/09/18 16:00 99.0 69 22 127/75 (92) 97 09/09/18 16:00 3.0 09/09/18 16:00 92 Intake and Output 09/09/18 09/10/18 18:59 06:59 Intake Total 550 ml Balance 550 ml Intake Oral 500 ml IV Total 50 ml # Voids 2 2 General Appearance: cachetic HEENT: normocephalic, atraumatic Respiratory/Chest: chest wall non-tender, lungs clear Cardiovascular: normal peripheral pulses, normal rate Abdomen: normal bowel sounds, no organomegaly Extremities: no cyanosis, no clubbing Skin: no rash Microbiology Date/Time Source Procedure Growth Status 09/08/18 08:50 Blood Blood Culture - Preliminary NO GROWTH AFTER 24 HOURS Resulted 09/08/18 08:40 Blood Blood Culture - Preliminary NO GROWTH AFTER 24 HOURS Resulted 09/08/18 17:51 Sputum Gram Stain - Final Complete 09/08/18 17:51 Sputum Sputum Culture - Final NORMAL UPPER RESPIRATORY LUIS CARLOS PRESENT Complete 09/08/18 07:45 Nasal Nares Influenza Types A,B Antigen (PAM) - Final Complete Laboratory Tests 09/09/18 21:19: Hemoglobin A1c 6.3H 09/10/18 06:30: White Blood Count 5.4, Red Blood Count 4.41L, Hemoglobin 13.5L, Hematocrit 39.8L , Mean Corpuscular Volume 90, Mean Corpuscular Hemoglobin 30.6, Mean Corpuscular Hemoglobin Concent 33.9, Red Cell Distribution Width 12.7, Platelet Count 149L, Mean Platelet Volume 6.2L, Neutrophils (%) (Auto) 51.5, Lymphocytes (%) (Auto) 28.8, Monocytes (%) (Auto) 15.2H, Eosinophils (%) (Auto) 3.4H, Basophils (%) (Auto) 1.1, Sodium Level 141, Potassium Level 3.9, Chloride Level 105, Carbon Dioxide Level 30, Anion Gap 6, Blood Urea Nitrogen 21H, Creatinine 0.8, Estimat Glomerular Filtration Rate , Glucose Level 98, Calcium Level 8.3L Current Medications Medications (Trade) Dose Ordered Sig/Elio Route PRN Reason Start Time Stop Time Status Last Admin Dose Admin Acetaminophen (Tylenol) 650 mg Q4H PRN ORAL FEVER (temp>100.5F) 09/09/18 21:45 10/08/18 13:44 Albuterol/ Ipratropium (Albuterol/ Ipratropium) 3 ml Q4H PRN HHN Shortness of Breath 09/09/18 21:45 09/13/18 13:44 Cefepime HCl 2 gm/ Dextrose 110 ml @ 220 mls/hr Q24H IV 09/10/18 17:00 09/15/18 16:59 Dextrose (Dextrose 50%) 25 ml Q30M PRN IV Hypoglycemia 09/09/18 21:45 10/08/18 13:44 Dextrose (Dextrose 50%) 50 ml Q30M PRN IV Hypoglycemia 09/09/18 21:45 10/08/18 13:44 Heparin Sodium (Porcine) (Heparin 5000 units/ml) 5,000 units EVERY 12 HOURS SUBQ 09/10/18 09:00 10/08/18 20:59 Insulin Aspart (NovoLOG) BEFORE MEALS AND HS SUBQ 09/10/18 06:30 10/08/18 16:29 Lorazepam (Ativan 2mg/ml 1ml) 2 mg Q2H PRN IV For Anxiety 09/09/18 21:45 09/15/18 13:44 Morphine Sulfate (Morphine Sulfate) 4 mg Q4H PRN IVP Severe Pain (Pain Scale 7-10) 09/09/18 21:45 09/15/18 13:44 Ondansetron HCl (Zofran) 4 mg Q6H PRN IVP Nausea & Vomiting 09/10/18 01:45 10/08/18 13:44 Polyethylene Glycol (Miralax) 17 gm DAILYPRN PRN ORAL Constipation 09/10/18 13:45 10/08/18 13:44 Promethazine HCl/ Codeine (Phenergan with Codeine) 5 ml EVERY 6 HOURS ORAL 09/10/18 00:00 10/08/18 12:29 09/10/18 12:01 Wolfgang Buchanan MD Sep 10, 2018 14:19
--- NOTE | 2018-09-10 15:14 | Diagnostic Imaging Report ---
Indication: Cough, shortness of breath Technique: 2 views of the chest Comparison: 09/08/2018 Findings: There is scalloping of the right hemidiaphragm. The lungs and pleural spaces are clear. The heart size is upper limits of normal. The aorta is tortuous. The lungs and pleural spaces are clear. There are degenerative changes of the thoracic spine and both shoulders. Findings are unchanged Impression: No acute process. Findings as noted
--- NOTE | 2018-09-10 15:42 | General Progress Note ---
Assessment/Plan Problem List: (1) SOB (shortness of breath) ICD Codes: R06.02 - Shortness of breath SNOMED: 375765287 (2) Chest pain ICD Codes: R07.9 - Chest pain, unspecified SNOMED: 44006432 (3) Coughing ICD Codes: R05 - Cough SNOMED: 75683310 (4) Diabetes mellitus ICD Codes: E11.9 - Type 2 diabetes mellitus without complications SNOMED: 51836118 Status: unchanged Assessment/Plan o2 pulm tx cardio f/u cbc bmp am Subjective Constitutional: Reports: weakness Allergies: Coded Allergies: No Known Allergies (Unverified , 09/08/18) All Systems: reviewed and negative except above Subjective sl anxious, no chest pain, sl sob, Objective Last 24 Hour Vital Signs Date Time Temp Pulse Resp B/P (MAP) Pulse Ox O2 Delivery O2 Flow Rate FiO2 09/10/18 12:00 97.9 75 18 122/66 (84) 95 09/10/18 08:15 95 Room Air 21 09/10/18 08:15 Room Air 21 09/10/18 08:15 74 16 Room Air 21 09/10/18 08:00 98.2 74 16 130/76 (94) 95 09/10/18 08:00 Nasal Cannula 3.0 09/10/18 04:29 98.1 66 18 116/66 (83) 09/10/18 00:06 99.0 70 18 133/73 (93) 09/09/18 21:00 Nasal Cannula 3.0 09/09/18 20:55 Nasal Cannula 3.0 32 09/09/18 20:55 76 18 Nasal Cannula 3.0 32 09/09/18 20:55 96 Nasal Cannula 3.0 32 09/09/18 20:00 3.0 09/09/18 20:00 98.7 77 24 133/75 (94) 98 09/09/18 19:27 69 09/09/18 16:00 99.0 69 22 127/75 (92) 97 09/09/18 16:00 3.0 09/09/18 16:00 92 Intake and Output 09/09/18 09/10/18 18:59 06:59 Intake Total 550 ml Balance 550 ml Intake Oral 500 ml IV Total 50 ml # Voids 2 2 Laboratory Tests 09/09/18 21:19: Hemoglobin A1c 6.3H 09/10/18 06:30: White Blood Count 5.4, Red Blood Count 4.41L, Hemoglobin 13.5L, Hematocrit 39.8L , Mean Corpuscular Volume 90, Mean Corpuscular Hemoglobin 30.6, Mean Corpuscular Hemoglobin Concent 33.9, Red Cell Distribution Width 12.7, Platelet Count 149L, Mean Platelet Volume 6.2L, Neutrophils (%) (Auto) 51.5, Lymphocytes (%) (Auto) 28.8, Monocytes (%) (Auto) 15.2H, Eosinophils (%) (Auto) 3.4H, Basophils (%) (Auto) 1.1, Sodium Level 141, Potassium Level 3.9, Chloride Level 105, Carbon Dioxide Level 30, Anion Gap 6, Blood Urea Nitrogen 21H, Creatinine 0.8, Estimat Glomerular Filtration Rate , Glucose Level 98, Calcium Level 8.3L Height (Feet): 5 Height (Inches): 3.00 Weight (Pounds): 166 General Appearance: lethargic EENT: normal ENT inspection Neck: normal alignment Cardiovascular: normal peripheral pulses, normal rate, regular rhythm Respiratory/Chest: chest wall non-tender, lungs clear, normal breath sounds Abdomen: normal bowel sounds, non tender, soft Extremities: normal inspection Edema: no edema noted Arm (L), no edema noted Arm (R), no edema noted Leg (L), no edema noted Leg (R), no edema noted Pedal (L), no edema noted Pedal (R), no edema noted Generalized Neurologic: motor weakness Skin: normal pigmentation, warm/dry Sim Bello DO Sep 10, 2018 15:42
[2018-09-10 16:00] VITALS: BP 128/77
--- NOTE | 2018-09-10 16:22 | NUR ---
P.T NOTE: PATIENT NOT APPROPRIATE FOR SKILLED P.T SERVICE PATIENT IS CURRENTLY AT BASELINE FUNCTION. PATIENT IS INDEPENDENT FOR ALL ADL/FUNCTIONAL MOBILITIES AND GAIT/LOCOMOTION. DC P.T SERVICES . THANK YOU FOR THIS REFERRAL.
--- NOTE | 2018-09-10 16:57 | Cardiology Report ---
APPROVED REPORT EXAM: Two-dimensional and M-mode echocardiogram with Doppler and color Doppler. INDICATION S.O.B M-Mode DIMENSIONS IVSd1.4 (0.7-1.1cm)Left Atrium (MM)4.5 (1.6-4.0cm) LVDd4.7 (3.5-5.6cm)Aortic Root3.0 (2.0-3.7cm) PWd1.4 (0.7-1.1cm)Aortic Cusp Exc.1.8 (1.5-2.0cm) IVSs1.5 cm LVDs3.0 (2.5-4.0cm) PWs1.7 cm Technically difficulat study with poor valvular and endocardial definition Normal left ventricular chamber size, grossly normal systolic function and wall motion. Left ventricular ejection fraction estimated to be 60-65 %. Mild left ventricular hypertrophy by 2-D. Small posterior pericardial effusion. All other cardiac chamber sizes are within normal limits. Focal aortic valve sclerosis with adequate cusp excursion. Thickened mitral valve leaflets with normal excursion. Mitral annulus and aortic root calcification. Pulmonic valve not well visualized. Normal tricuspid valve structure. IVC at normal size wit physiologic collapse. A color flow and spectral Doppler study was performed and revealed: Mild aortic regurgitation. Trace mitral regurgitation. Mitral diastolic velocities suggest reduced left ventricular relaxation c/w mild LV diastolic dysfunction (Grade I ). Mild tricuspid regurgitation. Tricuspid systolic velocities suggests peak right ventricular systolic pressure of 29 mmHg.
[2018-09-10] MEDS ORDERED: Cefepime HCl 2 GM in D5W 110 ML IV SCH (17:00)
--- NOTE | 2018-09-10 19:29 | NUR ---
HAND-OFF: Report given to LUZ Case.
[2018-09-10 20:00] VITALS: BP 128/63
[2018-09-11 00:24] VITALS: BP 135/66
[2018-09-11 04:00] VITALS: BP 111/54
[2018-09-11] MEDS: Promethazine/Codeine 5ml UD ORAL SCH ×3 (06:13→18:17)
[2018-09-11] MEDS: NovoLOG Insulin Flexpen SUBQ SCH ×4 (06:30→21:06)
--- NOTE | 2018-09-11 07:39 | NUR ---
NURSE NOTES: Pt awake abled to verbalize known needs. Sitting in chair eating breakfast. Denies pain . Breathing room air. Call light in reach
[2018-09-11 08:00] VITALS: BP 120/71
[2018-09-11 08:23] LABS: BASOPHILS % (AUTO) 1.1 % (0.0-2.0); EOSINOPHILS % (AUTO) 4.3 % (0.0-3.0); HEMATOCRIT 41.1 % (42.0-52.0); HEMOGLOBIN 14.1 G/DL (14.2-18.0); LYMPHOCYTES % (AUTO) 34.4 % (20.0-45.0); MEAN CORPUSCULAR VOLUME 90 FL (80-99); MONOCYTES % (AUTO) 15.1 % (1.0-10.0); NEUTROPHILS % (AUTO) 45.1 % (45.0-75.0); PLATELET COUNT 134 K/UL (150-450); RED BLOOD COUNT 4.56 M/UL (4.70-6.10); RED CELL DISTRIBUTION WIDTH 12.2 % (11.6-14.8); WHITE BLOOD COUNT 5.1 K/UL (4.8-10.8)
[2018-09-11] MEDS: Heparin 5000 units/ml inj SUBQ SCH ×2 (08:29→20:59)
--- NOTE | 2018-09-11 08:29 | NUR ---
NURSE NOTES: Heparin held platelets below 150 pt is ambulatory
--- NOTE | 2018-09-11 08:31 | NUR ---
NURSE NOTES: Placed on 02 due to O2 saturation at 91. RT is here refused breathing treatment. Risk and benefits explained
[2018-09-11 08:54] LABS: ANION GAP 5 mmol/L (5-15); BLOOD UREA NITROGEN 20 mg/dL (7-18); CALCIUM 8.9 MG/DL (8.5-10.1); CARBON DIOXIDE 30 MMOL/L (21-32); CHLORIDE 107 MMOL/L (98-107); CREATININE 0.7 MG/DL (0.55-1.30); POTASSIUM 4.1 MMOL/L (3.5-5.1); SODIUM 142 MMOL/L (136-145)
[2018-09-11 12:00] VITALS: BP 124/88
--- NOTE | 2018-09-11 12:57 | Pulmonology Progress Note ---
Assessment/Plan Problems: (1) Acute bronchitis (2) Pneumonitis (3) Diabetes mellitus (4) History of hypertension Assessment/Plan c/o acid gastric pain improving slowly sputum is negative so far echo reviewed, EF 60% continue abx taper steroids pt/ot dvt prophylaxis. Subjective ROS Limited/Unobtainable: No Interval Events: slightly better, c/o acid gastric pain Constitutional: Reports: no symptoms HEENT: Repors: no symptoms Respiratory: Reports: no symptoms Allergies: Coded Allergies: No Known Allergies (Unverified , 09/08/18) Objective Last 24 Hour Vital Signs Date Time Temp Pulse Resp B/P (MAP) Pulse Ox O2 Delivery O2 Flow Rate FiO2 09/11/18 08:17 Nasal Cannula 2.0 28 09/11/18 08:15 96 Nasal Cannula 2.0 28 09/11/18 08:14 64 18 Nasal Cannula 2.0 28 09/11/18 04:00 97.3 68 18 111/54 (73) 95 09/11/18 00:24 97.2 71 18 135/66 (89) 09/10/18 21:00 Nasal Cannula 3.0 09/10/18 20:42 Nasal Cannula 21 09/10/18 20:42 97 Nasal Cannula 2.0 28 09/10/18 20:42 67 16 Nasal Cannula 2.0 28 09/10/18 20:27 69 16 Room Air 21 09/10/18 20:27 Room Air 21 09/10/18 20:27 97 Room Air 21 09/10/18 20:00 98.0 74 18 128/63 (84) 96 09/10/18 16:00 97.7 68 18 128/77 (94) 97 Intake and Output 09/10/18 09/11/18 18:59 06:59 Intake Total 550 ml Output Total 850 ml Balance -300 ml Intake Oral 550 ml Output Urine Total 850 ml # Voids 2 4 General Appearance: WD/WN HEENT: normocephalic, anicteric Respiratory/Chest: lungs clear, normal breath sounds Cardiovascular: normal peripheral pulses, normal rate, no JVD Abdomen: soft, non tender Extremities: no cyanosis, no clubbing Skin: no lesions Microbiology Date/Time Source Procedure Growth Status 09/08/18 17:51 Sputum Gram Stain - Final Complete 09/08/18 17:51 Sputum Sputum Culture - Final NORMAL UPPER RESPIRATORY LUIS CARLOS PRESENT Complete Laboratory Tests 3/13/19 05:50: White Blood Count 5.1, Red Blood Count 4.56L, Hemoglobin 14.1L, Hematocrit 41.1L , Mean Corpuscular Volume 90, Mean Corpuscular Hemoglobin 30.8, Mean Corpuscular Hemoglobin Concent 34.2, Red Cell Distribution Width 12.2, Platelet Count 134L, Mean Platelet Volume 6.2L, Neutrophils (%) (Auto) 45.1, Lymphocytes (%) (Auto) 34.4, Monocytes (%) (Auto) 15.1H, Eosinophils (%) (Auto) 4.3H, Basophils (%) (Auto) 1.1, Sodium Level 142, Potassium Level 4.1, Chloride Level 107, Carbon Dioxide Level 30, Anion Gap 5, Blood Urea Nitrogen 20H, Creatinine 0.7, Estimat Glomerular Filtration Rate , Glucose Level 85, Calcium Level 8.9 Current Medications Medications (Trade) Dose Ordered Sig/Elio Route PRN Reason Start Time Stop Time Status Last Admin Dose Admin Acetaminophen (Tylenol) 650 mg Q4H PRN ORAL FEVER (temp>100.5F) 09/09/18 21:45 10/08/18 13:44 Albuterol/ Ipratropium (Albuterol/ Ipratropium) 3 ml Q4H PRN HHN Shortness of Breath 09/09/18 21:45 09/13/18 13:44 Cefepime HCl 2 gm/ Dextrose 110 ml @ 220 mls/hr Q24H IV 09/10/18 17:00 09/15/18 16:59 09/10/18 17:38 Dextrose (Dextrose 50%) 25 ml Q30M PRN IV Hypoglycemia 09/09/18 21:45 10/08/18 13:44 Dextrose (Dextrose 50%) 50 ml Q30M PRN IV Hypoglycemia 09/09/18 21:45 10/08/18 13:44 Heparin Sodium (Porcine) (Heparin 5000 units/ml) 5,000 units EVERY 12 HOURS SUBQ 09/10/18 09:00 10/08/18 20:59 Insulin Aspart (NovoLOG) BEFORE MEALS AND HS SUBQ 09/10/18 06:30 10/08/18 16:29 09/11/18 12:23 Ondansetron HCl (Zofran) 4 mg Q6H PRN IVP Nausea & Vomiting 09/10/18 01:45 10/08/18 13:44 Polyethylene Glycol (Miralax) 17 gm DAILYPRN PRN ORAL Constipation 09/10/18 13:45 10/08/18 13:44 Promethazine HCl/ Codeine (Phenergan with Codeine) 5 ml EVERY 6 HOURS ORAL 09/10/18 00:00 10/08/18 12:29 09/11/18 06:13 Wolfgang Buchanan MD Sep 11, 2018 12:57
--- NOTE | 2018-09-11 12:59 | Pulmonology Progress Note ---
Assessment/Plan Problems: (1) Acute bronchitis (2) Pneumonitis (3) Diabetes mellitus (4) History of hypertension Assessment/Plan c/o acid gastric pain improving slowly sputum is negative so far echo reviewed, EF 60% continue abx pt/ot dvt prophylaxis. Subjective ROS Limited/Unobtainable: No Constitutional: Reports: no symptoms HEENT: Repors: no symptoms Allergies: Coded Allergies: No Known Allergies (Unverified , 09/08/18) Objective Last 24 Hour Vital Signs Date Time Temp Pulse Resp B/P (MAP) Pulse Ox O2 Delivery O2 Flow Rate FiO2 09/11/18 08:17 Nasal Cannula 2.0 28 09/11/18 08:15 96 Nasal Cannula 2.0 28 09/11/18 08:14 64 18 Nasal Cannula 2.0 28 09/11/18 04:00 97.3 68 18 111/54 (73) 95 09/11/18 00:24 97.2 71 18 135/66 (89) 09/10/18 21:00 Nasal Cannula 3.0 09/10/18 20:42 Nasal Cannula 21 09/10/18 20:42 97 Nasal Cannula 2.0 28 09/10/18 20:42 67 16 Nasal Cannula 2.0 28 09/10/18 20:27 69 16 Room Air 21 09/10/18 20:27 Room Air 21 09/10/18 20:27 97 Room Air 21 09/10/18 20:00 98.0 74 18 128/63 (84) 96 09/10/18 16:00 97.7 68 18 128/77 (94) 97 Intake and Output 09/10/18 09/11/18 18:59 06:59 Intake Total 550 ml Output Total 850 ml Balance -300 ml Intake Oral 550 ml Output Urine Total 850 ml # Voids 2 4 General Appearance: WD/WN HEENT: normocephalic, anicteric Respiratory/Chest: crackles/rales Cardiovascular: normal peripheral pulses, normal rate Abdomen: normal bowel sounds, soft, non tender Genitourinary: normal external genitalia Skin: no rash, no lesions Microbiology Date/Time Source Procedure Growth Status 09/08/18 17:51 Sputum Gram Stain - Final Complete 09/08/18 17:51 Sputum Sputum Culture - Final NORMAL UPPER RESPIRATORY LUIS CARLOS PRESENT Complete Laboratory Tests 09/11/18 05:50: White Blood Count 5.1, Red Blood Count 4.56L, Hemoglobin 14.1L, Hematocrit 41.1L , Mean Corpuscular Volume 90, Mean Corpuscular Hemoglobin 30.8, Mean Corpuscular Hemoglobin Concent 34.2, Red Cell Distribution Width 12.2, Platelet Count 134L, Mean Platelet Volume 6.2L, Neutrophils (%) (Auto) 45.1, Lymphocytes (%) (Auto) 34.4, Monocytes (%) (Auto) 15.1H, Eosinophils (%) (Auto) 4.3H, Basophils (%) (Auto) 1.1, Sodium Level 142, Potassium Level 4.1, Chloride Level 107, Carbon Dioxide Level 30, Anion Gap 5, Blood Urea Nitrogen 20H, Creatinine 0.7, Estimat Glomerular Filtration Rate , Glucose Level 85, Calcium Level 8.9 Current Medications Medications (Trade) Dose Ordered Sig/Elio Route PRN Reason Start Time Stop Time Status Last Admin Dose Admin Acetaminophen (Tylenol) 650 mg Q4H PRN ORAL FEVER (temp>100.5F) 09/09/18 21:45 10/08/18 13:44 Albuterol/ Ipratropium (Albuterol/ Ipratropium) 3 ml Q4H PRN HHN Shortness of Breath 09/09/18 21:45 09/13/18 13:44 Cefepime HCl 2 gm/ Dextrose 110 ml @ 220 mls/hr Q24H IV 09/10/18 17:00 09/15/18 16:59 09/10/18 17:38 Dextrose (Dextrose 50%) 25 ml Q30M PRN IV Hypoglycemia 09/09/18 21:45 10/08/18 13:44 Dextrose (Dextrose 50%) 50 ml Q30M PRN IV Hypoglycemia 09/09/18 21:45 10/08/18 13:44 Heparin Sodium (Porcine) (Heparin 5000 units/ml) 5,000 units EVERY 12 HOURS SUBQ 09/10/18 09:00 10/08/18 20:59 Insulin Aspart (NovoLOG) BEFORE MEALS AND HS SUBQ 09/10/18 06:30 10/08/18 16:29 09/11/18 12:23 Ondansetron HCl (Zofran) 4 mg Q6H PRN IVP Nausea & Vomiting 09/10/18 01:45 10/08/18 13:44 Polyethylene Glycol (Miralax) 17 gm DAILYPRN PRN ORAL Constipation 09/10/18 13:45 10/08/18 13:44 Promethazine HCl/ Codeine (Phenergan with Codeine) 5 ml EVERY 6 HOURS ORAL 09/10/18 00:00 10/08/18 12:29 09/11/18 06:13 Wolfgang Buchanan MD Sep 11, 2018 12:59
--- NOTE | 2018-09-11 14:12 | NUR ---
NURSE NOTES: Pt able to verbalize known needs . Seen by Dr Buchanan earlier in shift. Coverage of 2 units given for blood sugar of 120. Call light is in reach
--- NOTE | 2018-09-11 14:26 | General Progress Note ---
Assessment/Plan Problem List: (1) SOB (shortness of breath) ICD Codes: R06.02 - Shortness of breath SNOMED: 295790607 (2) Chest pain ICD Codes: R07.9 - Chest pain, unspecified SNOMED: 92693809 (3) Coughing ICD Codes: R05 - Cough SNOMED: 30277553 (4) Diabetes mellitus ICD Codes: E11.9 - Type 2 diabetes mellitus without complications SNOMED: 14641177 Status: unchanged Assessment/Plan o2 pulm tx cardio f/u cbc bmp am Subjective Constitutional: Reports: weakness Allergies: Coded Allergies: No Known Allergies (Unverified , 09/08/18) All Systems: reviewed and negative except above Subjective sl anxious, no chest pain, sl sob, Objective Last 24 Hour Vital Signs Date Time Temp Pulse Resp B/P (MAP) Pulse Ox O2 Delivery O2 Flow Rate FiO2 09/11/18 12:00 97.9 66 18 124/88 (100) 09/11/18 09:00 Nasal Cannula 2.0 09/11/18 08:17 Nasal Cannula 2.0 28 09/11/18 08:15 96 Nasal Cannula 2.0 28 09/11/18 08:14 64 18 Nasal Cannula 2.0 28 09/11/18 08:00 98.3 75 24 120/71 (87) 91 09/11/18 04:00 97.3 68 18 111/54 (73) 95 09/11/18 00:24 97.2 71 18 135/66 (89) 09/10/18 21:00 Nasal Cannula 3.0 09/10/18 20:42 Nasal Cannula 21 09/10/18 20:42 97 Nasal Cannula 2.0 28 09/10/18 20:42 67 16 Nasal Cannula 2.0 28 09/10/18 20:27 69 16 Room Air 21 09/10/18 20:27 Room Air 21 09/10/18 20:27 97 Room Air 21 09/10/18 20:00 98.0 74 18 128/63 (84) 96 09/10/18 16:00 97.7 68 18 128/77 (94) 97 Intake and Output 09/10/18 09/11/18 18:59 06:59 Intake Total 550 ml Output Total 850 ml Balance -300 ml Intake Oral 550 ml Output Urine Total 850 ml # Voids 2 4 Laboratory Tests 09/11/18 05:50: White Blood Count 5.1, Red Blood Count 4.56L, Hemoglobin 14.1L, Hematocrit 41.1L , Mean Corpuscular Volume 90, Mean Corpuscular Hemoglobin 30.8, Mean Corpuscular Hemoglobin Concent 34.2, Red Cell Distribution Width 12.2, Platelet Count 134L, Mean Platelet Volume 6.2L, Neutrophils (%) (Auto) 45.1, Lymphocytes (%) (Auto) 34.4, Monocytes (%) (Auto) 15.1H, Eosinophils (%) (Auto) 4.3H, Basophils (%) (Auto) 1.1, Sodium Level 142, Potassium Level 4.1, Chloride Level 107, Carbon Dioxide Level 30, Anion Gap 5, Blood Urea Nitrogen 20H, Creatinine 0.7, Estimat Glomerular Filtration Rate , Glucose Level 85, Calcium Level 8.9 Height (Feet): 5 Height (Inches): 3.00 Weight (Pounds): 181 General Appearance: lethargic EENT: PERRL/EOMI Neck: normal alignment Cardiovascular: normal peripheral pulses, normal rate, regular rhythm Respiratory/Chest: chest wall non-tender, decreased breath sounds, expiratory wheezing Abdomen: normal bowel sounds, non tender, soft Extremities: normal inspection Edema: no edema noted Arm (L), no edema noted Arm (R), no edema noted Leg (L), no edema noted Leg (R), no edema noted Pedal (L), no edema noted Pedal (R), no edema noted Generalized Neurologic: responsive, motor weakness Skin: normal pigmentation, warm/dry Sim Bello DO Sep 11, 2018 14:26
--- NOTE | 2018-09-11 15:17 | Infectious Diseases Prog Note ---
Assessment/Plan Assessment/Plan Assessment: Probable early PNA vs Acute bronchitis -CXR: Hepatomegaly. Mild interstitial prominence. No focal infiltrate or consolidation. -influenza sc neg -sp cx normal resp melissa Afebrile No leukocytosis DM2 HTN HLD Plan: -Switch empiric Cefepime #4/ to PO levaquin -3 SP IV vancomycin #2 -f/u cx -Monitor CBC/CMP, temperatures -f/u CXR 2v am Thank you for this consultation. Will continue to follow along with you. Discussed with RN. Subjective Allergies: Coded Allergies: No Known Allergies (Unverified , 09/08/18) Subjective afebrile at RA no leukocytosis feeling better Objective Vital Signs Last 24 Hour Vital Signs Date Time Temp Pulse Resp B/P (MAP) Pulse Ox O2 Delivery O2 Flow Rate FiO2 09/11/18 12:00 97.9 66 18 124/88 (100) 09/11/18 09:00 Nasal Cannula 2.0 09/11/18 08:17 Nasal Cannula 2.0 28 09/11/18 08:15 96 Nasal Cannula 2.0 28 09/11/18 08:14 64 18 Nasal Cannula 2.0 28 09/11/18 08:00 98.3 75 24 120/71 (87) 91 09/11/18 04:00 97.3 68 18 111/54 (73) 95 09/11/18 00:24 97.2 71 18 135/66 (89) 09/10/18 21:00 Nasal Cannula 3.0 09/10/18 20:42 Nasal Cannula 21 09/10/18 20:42 97 Nasal Cannula 2.0 28 09/10/18 20:42 67 16 Nasal Cannula 2.0 28 09/10/18 20:27 69 16 Room Air 21 09/10/18 20:27 Room Air 21 09/10/18 20:27 97 Room Air 21 09/10/18 20:00 98.0 74 18 128/63 (84) 96 09/10/18 16:00 97.7 68 18 128/77 (94) 97 Height (Feet): 5 Height (Inches): 3.00 Weight (Pounds): 181 Objective General Appearance: WD/WN Lines, tubes and drains: peripheral HEENT: normocephalic, atraumatic Neck: non-tender, normal alignment Respiratory/Chest: chest wall non-tender, rhonchi - left, rhonchi - right Cardiovascular/Chest: normal peripheral pulses, normal rate, regular rhythm Abdomen: normal bowel sounds, non tender Skin Exam: normal pigmentation Neurologic: data conversion analyst II-XII grossly normal, no motor/sensory deficits Microbiology Date/Time Source Procedure Growth Status 09/08/18 17:51 Sputum Gram Stain - Final Complete 09/08/18 17:51 Sputum Sputum Culture - Final NORMAL UPPER RESPIRATORY MELISSA PRESENT Complete Laboratory Tests Test 09/11/18 05:50 White Blood Count 5.1 K/UL (4.8-10.8) Red Blood Count 4.56 M/UL (4.70-6.10) L Hemoglobin 14.1 G/DL (14.2-18.0) L Hematocrit 41.1 % (42.0-52.0) L Mean Corpuscular Volume 90 FL (80-99) Mean Corpuscular Hemoglobin 30.8 PG (27.0-31.0) Mean Corpuscular Hemoglobin Concent 34.2 G/DL (32.0-36.0) Red Cell Distribution Width 12.2 % (11.6-14.8) Platelet Count 134 K/UL (150-450) L Mean Platelet Volume 6.2 FL (6.5-10.1) L Neutrophils (%) (Auto) 45.1 % (45.0-75.0) Lymphocytes (%) (Auto) 34.4 % (20.0-45.0) Monocytes (%) (Auto) 15.1 % (1.0-10.0) H Eosinophils (%) (Auto) 4.3 % (0.0-3.0) H Basophils (%) (Auto) 1.1 % (0.0-2.0) Sodium Level 142 MMOL/L (136-145) Potassium Level 4.1 MMOL/L (3.5-5.1) Chloride Level 107 MMOL/L (98-107) Carbon Dioxide Level 30 MMOL/L (21-32) Anion Gap 5 mmol/L (5-15) Blood Urea Nitrogen 20 mg/dL (7-18) H Creatinine 0.7 MG/DL (0.55-1.30) Estimat Glomerular Filtration Rate mL/min (>60) Glucose Level 85 MG/DL (74-106) Calcium Level 8.9 MG/DL (8.5-10.1) Current Medications Medications (Trade) Dose Ordered Sig/Elio Route PRN Reason Start Time Stop Time Status Last Admin Dose Admin Acetaminophen (Tylenol) 650 mg Q4H PRN ORAL FEVER (temp>100.5F) 09/09/18 21:45 10/08/18 13:44 Albuterol/ Ipratropium (Albuterol/ Ipratropium) 3 ml Q4H PRN HHN Shortness of Breath 09/09/18 21:45 09/13/18 13:44 Cefepime HCl 2 gm/ Dextrose 110 ml @ 220 mls/hr Q24H IV 09/10/18 17:00 09/15/18 16:59 09/10/18 17:38 Dextrose (Dextrose 50%) 25 ml Q30M PRN IV Hypoglycemia 09/09/18 21:45 10/08/18 13:44 Dextrose (Dextrose 50%) 50 ml Q30M PRN IV Hypoglycemia 09/09/18 21:45 10/08/18 13:44 Heparin Sodium (Porcine) (Heparin 5000 units/ml) 5,000 units EVERY 12 HOURS SUBQ 09/10/18 09:00 10/08/18 20:59 Insulin Aspart (NovoLOG) BEFORE MEALS AND HS SUBQ 09/10/18 06:30 10/08/18 16:29 09/11/18 12:23 Ondansetron HCl (Zofran) 4 mg Q6H PRN IVP Nausea & Vomiting 09/10/18 01:45 10/08/18 13:44 Pantoprazole (Protonix) 40 mg DAILY ORAL 09/12/18 09:00 10/12/18 08:59 Polyethylene Glycol (Miralax) 17 gm DAILYPRN PRN ORAL Constipation 09/10/18 13:45 10/08/18 13:44 Promethazine HCl/ Codeine (Phenergan with Codeine) 5 ml EVERY 6 HOURS ORAL 09/10/18 00:00 10/08/18 12:29 09/11/18 14:26 Sucralfate (Carafate) 1 gm AC+HS ORAL 09/11/18 16:30 10/11/18 16:29 Adrienne Aquino M.D. Sep 11, 2018 15:17
--- NOTE | 2018-09-11 15:23 | GI Initial Consult Note ---
History of Present Illness General Date patient seen: Sep 11, 2018 Time patient seen: 15:23 Reason for Hospitalization: Upper Respiratory Illness Referring physician: JERRI Reason for Consultation: ABDOMINAL PAIN / GERD Present Illness HPI Patient is an 83-year-old male presented after increased difficulty breathing for approximately 3 days. Patient was noted to have increased chest tightness. This is been present for several days but had worsened this morning. He reportedly had been having a nonproductive cough with increased congestion. He denies any prior history of lung disease. Patient denies any productive cough. He is not a smoker. He denies any prior cardiac disease. He denies any leg pain or swelling. He is followed by Dr. Lam GI consulted for abdominal pain. Pt seen, awake A&Ox4 NAD has c/o of chronic abdominal pain due to GERD. Patient states the pain is worse after PO intake. He has no history of endoscopy. The patient states he has been prescribed medication, but his symptoms have been unrelieved. Labs reviewed. Microbiology reviewed. Imaging studies reviewed. Home Meds Active Scripts Guaifenesin* (ADULT WAL-TUSSIN*) 100 Mg/5 Ml Liquid, 5 ML ORAL Q4H, #120 ML Prov:Parth Brandon MD 09/08/18 Albuterol Sulfate* (ALBUTEROL SULFATE MDI*) 8.5 Gm Hfa.aer.ad, 2 PUFF INH Q4H PRN for cough/wheezing, #1 EA 0 Refills Prov:Parth Brandon MD 09/08/18 Prednisone* (PREDNISONE*) 20 Mg Tablet, 40 MG ORAL DAILY, #8 TAB Prov:Parth Brandon MD 09/08/18 Reported Medications Metformin Hcl* (METFORMIN HCL*) 500 Mg Tablet, 500 MG ORAL TWICE A DAY, TAB 09/08/18 Bupropion Xl* (BUPROPION XL*) 150 Mg Tab.er.24h, 300 MG ORAL Q24H, TAB 0 Refills 09/08/18 Atenolol* (TENORMIN*) 100 Mg Tablet, 100 MG ORAL DAILY, TAB 09/08/18 Rosuvastatin Calcium* (CRESTOR*) 10 Mg Tablet, 5 MG ORAL DAILY, TAB 09/08/18 Omeprazole (OMEPRAZOLE) 40 Mg Capsule., 40 MG ORAL DAILY, CAP 09/08/18 Med list reviewed/reconciled: Yes Allergies: Coded Allergies: No Known Allergies (Unverified , 09/08/18) Patient History PMH Narrative Past Medical History: No History, Except For Hx Cardiac Problems: Yes - high cholesterol Hx Hypertension: Yes Hx Gastrointestinal Problems: Yes Social History: Denies: smoking, alcohol use, drug use, other Review of Systems All Other Systems: negative except mentioned in HPI Physical Exam Vital Signs Date Time Temp Pulse Resp B/P (MAP) Pulse Ox O2 Delivery O2 Flow Rate FiO2 09/08/18 07:29 98.2 91 24 132/73 95 Room Air 09/08/18 08:01 21 09/08/18 12:51 3.0 Sp02 EP Interpretation: reviewed, normal Labs Laboratory Tests Test 09/11/18 05:50 White Blood Count 5.1 K/UL (4.8-10.8) Red Blood Count 4.56 M/UL (4.70-6.10) L Hemoglobin 14.1 G/DL (14.2-18.0) L Hematocrit 41.1 % (42.0-52.0) L Mean Corpuscular Volume 90 FL (80-99) Mean Corpuscular Hemoglobin 30.8 PG (27.0-31.0) Mean Corpuscular Hemoglobin Concent 34.2 G/DL (32.0-36.0) Red Cell Distribution Width 12.2 % (11.6-14.8) Platelet Count 134 K/UL (150-450) L Mean Platelet Volume 6.2 FL (6.5-10.1) L Neutrophils (%) (Auto) 45.1 % (45.0-75.0) Lymphocytes (%) (Auto) 34.4 % (20.0-45.0) Monocytes (%) (Auto) 15.1 % (1.0-10.0) H Eosinophils (%) (Auto) 4.3 % (0.0-3.0) H Basophils (%) (Auto) 1.1 % (0.0-2.0) Sodium Level 142 MMOL/L (136-145) Potassium Level 4.1 MMOL/L (3.5-5.1) Chloride Level 107 MMOL/L (98-107) Carbon Dioxide Level 30 MMOL/L (21-32) Anion Gap 5 mmol/L (5-15) Blood Urea Nitrogen 20 mg/dL (7-18) H Creatinine 0.7 MG/DL (0.55-1.30) Estimat Glomerular Filtration Rate mL/min (>60) Glucose Level 85 MG/DL (74-106) Calcium Level 8.9 MG/DL (8.5-10.1) General Appearance: well appearing, no apparent distress, alert Head: normocephalic EENT: PERRL/EOMI, normal ENT inspection Neck: supple Respiratory: normal breath sounds, no respiratory distress Cardiovascular: normal rate Gastrointestinal: normal inspection, non tender, soft, normal bowel sounds, non -distended Rectal: deferred Genitourinary: deferred Musculoskeletal: normal inspection, back normal Neurologic: normal inspection, alert, oriented x3, responsive Psychiatric: normal inspection, judgement/insight normal, memory normal Skin: normal inspection, normal color, no rash, warm/dry, palpation normal, well hydrated Lymphatic: normal inspection, no adenopathy Current Medications Current Medications Medications (Trade) Dose Ordered Sig/Elio Route PRN Reason Start Time Stop Time Status Last Admin Dose Admin Acetaminophen (Tylenol) 650 mg Q4H PRN ORAL FEVER (temp>100.5F) 09/09/18 21:45 10/08/18 13:44 Albuterol/ Ipratropium (Albuterol/ Ipratropium) 3 ml Q4H PRN HHN Shortness of Breath 09/09/18 21:45 09/13/18 13:44 Cefepime HCl 2 gm/ Dextrose 110 ml @ 220 mls/hr Q24H IV 09/10/18 17:00 09/15/18 16:59 09/10/18 17:38 Dextrose (Dextrose 50%) 25 ml Q30M PRN IV Hypoglycemia 09/09/18 21:45 10/08/18 13:44 Dextrose (Dextrose 50%) 50 ml Q30M PRN IV Hypoglycemia 09/09/18 21:45 10/08/18 13:44 Heparin Sodium (Porcine) (Heparin 5000 units/ml) 5,000 units EVERY 12 HOURS SUBQ 09/10/18 09:00 10/08/18 20:59 Insulin Aspart (NovoLOG) BEFORE MEALS AND HS SUBQ 09/10/18 06:30 10/08/18 16:29 09/11/18 12:23 Ondansetron HCl (Zofran) 4 mg Q6H PRN IVP Nausea & Vomiting 09/10/18 01:45 10/08/18 13:44 Pantoprazole (Protonix) 40 mg DAILY ORAL 09/12/18 09:00 10/12/18 08:59 Polyethylene Glycol (Miralax) 17 gm DAILYPRN PRN ORAL Constipation 09/10/18 13:45 10/08/18 13:44 Promethazine HCl/ Codeine (Phenergan with Codeine) 5 ml EVERY 6 HOURS ORAL 09/10/18 00:00 10/08/18 12:29 09/11/18 14:26 Sucralfate (Carafate) 1 gm AC+HS ORAL 09/11/18 16:30 10/11/18 16:29 GI: Plan Problems: (1) Abdominal pain (2) Chronic GERD Plan EGD scheduled for tomorrow to evaluate chronic GERD. - NPO + MN. - hold all blood thinners okay to cont PPI and Carafate zofran prn electrolyte correction will follow with additional recs Discussed with Dr. Britton. Thank you for this patient referral, we will follow. The patient was seen and examined at bedside and all new and available data was reviewed in the patients chart. I agree with the above findings, impression and plan. (Patient seen earlier today. Signature stamp does not reflect patient encounter time.). - MD Moraima Mitchell,[facility] [employer]OKE BEATER OPERATOR Sep 11, 2018 15:23
[2018-09-11 16:00] VITALS: BP 121/83
[2018-09-11] MEDS: Sucralfate 1gm tab ORAL SCH ×3 (16:30→21:01)
[2018-09-11] MEDS ORDERED: Levofloxacin 500mg tab ORAL SCH (18:00)
--- NOTE | 2018-09-11 18:30 | NUR ---
NURSE NOTES: Pt signed consent for pending EGD. aware that he will be NPO at Midnight
[2018-09-11 20:00] VITALS: BP 125/85
--- NOTE | 2018-09-11 20:30 | NUR ---
NURSE NOTES: Received report from LUZ Babin. Patient A&Ox4. On nasal cannula. No signs of distress or labored breathing. Denies pain. IV inrtact, patent, and saline locked. Bed in lowest position with call light in reach. Will continue with plan of care.
--- NOTE | 2018-09-11 20:38 | NUR ---
HAND-OFF: Report given to Marbella Campbell.
--- NOTE | 2018-09-11 22:09 | Cardiology Progress Note ---
Assessment/Plan Assessment/Plan 1. Dyspnea, most likely secondary to acute exacerbation of COPD/asthma, possibly triggered by acute viral bronchitis, No cardiac stress test is required at this time. 2. Prediabetes, on metformin. 3. Hypercholesterolemia. 4. History of hypertension, on diet control for now. Subjective Subjective Sinus rhythm at rate of 68. Objective Last 24 Hour Vital Signs Date Time Temp Pulse Resp B/P (MAP) Pulse Ox O2 Delivery O2 Flow Rate FiO2 09/11/18 20:35 Nasal Cannula 2.0 28 09/11/18 20:34 68 20 Nasal Cannula 2.0 28 09/11/18 20:34 96 Nasal Cannula 2.0 28 09/11/18 16:00 98.1 68 18 121/83 (96) 94 09/11/18 12:00 97.9 66 18 124/88 (100) 09/11/18 09:00 Nasal Cannula 2.0 09/11/18 08:17 Nasal Cannula 2.0 28 09/11/18 08:15 96 Nasal Cannula 2.0 28 09/11/18 08:14 64 18 Nasal Cannula 2.0 28 09/11/18 08:00 98.3 75 24 120/71 (87) 91 09/11/18 04:00 97.3 68 18 111/54 (73) 95 09/11/18 00:24 97.2 71 18 135/66 (89) Intake and Output 09/10/18 09/11/18 19:00 07:00 Intake Total 550 ml Output Total 850 ml Balance -300 ml Intake Oral 550 ml Output Urine Total 850 ml # Voids 2 4 2D Echo: LVEF 55%, small pericard. eff., Mild LVH, Grade I LVDD, RVSP 29 mmHg Laboratory Tests Test 09/11/18 05:50 White Blood Count 5.1 K/UL (4.8-10.8) Red Blood Count 4.56 M/UL (4.70-6.10) L Hemoglobin 14.1 G/DL (14.2-18.0) L Hematocrit 41.1 % (42.0-52.0) L Mean Corpuscular Volume 90 FL (80-99) Mean Corpuscular Hemoglobin 30.8 PG (27.0-31.0) Mean Corpuscular Hemoglobin Concent 34.2 G/DL (32.0-36.0) Red Cell Distribution Width 12.2 % (11.6-14.8) Platelet Count 134 K/UL (150-450) L Mean Platelet Volume 6.2 FL (6.5-10.1) L Neutrophils (%) (Auto) 45.1 % (45.0-75.0) Lymphocytes (%) (Auto) 34.4 % (20.0-45.0) Monocytes (%) (Auto) 15.1 % (1.0-10.0) H Eosinophils (%) (Auto) 4.3 % (0.0-3.0) H Basophils (%) (Auto) 1.1 % (0.0-2.0) Sodium Level 142 MMOL/L (136-145) Potassium Level 4.1 MMOL/L (3.5-5.1) Chloride Level 107 MMOL/L (98-107) Carbon Dioxide Level 30 MMOL/L (21-32) Anion Gap 5 mmol/L (5-15) Blood Urea Nitrogen 20 mg/dL (7-18) H Creatinine 0.7 MG/DL (0.55-1.30) Estimat Glomerular Filtration Rate mL/min (>60) Glucose Level 85 MG/DL (74-106) Calcium Level 8.9 MG/DL (8.5-10.1) Objective HEENT: Atraumatic and normocephalic. Anicteric. Pupils are equal, round, and accommodation. Extraocular muscles intact. NECK: JVP less than 5 cm. No carotid bruit. Carotid upstroke is 2+ bilaterally. CARDIOVASCULAR: Normal S1, S2. Regular rate and rhythm. No murmurs, gallops, or rubs. PMI is at fourth intercostal space at the midclavicular line. LUNGS: Diminished breath sounds with expiratory rhonchi. Prolonged expiratory phase. ABDOMEN: Soft, nontender, and nondistended. No hepatosplenomegaly. Positive bowel sounds. EXTREMITIES: No evidence of edema, clubbing, or cyanosis. Leonel Crews MD Sep 11, 2018 22:09
[2018-09-12] VITALS (11 sets, daily range): BP systolic 109–140; BP diastolic 53–74
[2018-09-12 05:15] LABS: BASOPHILS % (AUTO) 0.9 % (0.0-2.0); EOSINOPHILS % (AUTO) 2.7 % (0.0-3.0); HEMATOCRIT 40.1 % (42.0-52.0); HEMOGLOBIN 13.7 G/DL (14.2-18.0); LYMPHOCYTES % (AUTO) 31.5 % (20.0-45.0); MEAN CORPUSCULAR VOLUME 90 FL (80-99); MONOCYTES % (AUTO) 12.6 % (1.0-10.0); NEUTROPHILS % (AUTO) 52.3 % (45.0-75.0); PLATELET COUNT 134 K/UL (150-450); RED BLOOD COUNT 4.45 M/UL (4.70-6.10); RED CELL DISTRIBUTION WIDTH 12.3 % (11.6-14.8)
[2018-09-12 05:24] LABS: ANION GAP 1 mmol/L (5-15); BLOOD UREA NITROGEN 19 mg/dL (7-18); CARBON DIOXIDE 34 MMOL/L (21-32); CHLORIDE 106 MMOL/L (98-107); CREATININE 0.9 MG/DL (0.55-1.30); POTASSIUM 4.6 MMOL/L (3.5-5.1); SODIUM 140 MMOL/L (136-145)
[2018-09-12 05:28] LABS: INR 1.1 (0.9-1.1)
[2018-09-12] MEDS: Promethazine/Codeine 5ml UD ORAL SCH ×4 (05:49→18:07)
[2018-09-12] MEDS: Sucralfate 1gm tab ORAL SCH ×4 (05:49→20:40)
[2018-09-12] MEDS: NovoLOG Insulin Flexpen SUBQ SCH ×4 (06:05→20:42)
--- NOTE | 2018-09-12 07:21 | NUR ---
HAND-OFF: Report given to LUZ Babin.
--- NOTE | 2018-09-12 07:41 | NUR ---
NURSE NOTES: Pt remains NPO awaiting EGD procedure. Call light well in reach . Current plan of care will be followed
[2018-09-12] MEDS: Levofloxacin 500mg tab ORAL SCH (09:00)
[2018-09-12] MEDS: Heparin 5000 units/ml inj SUBQ SCH ×2 (09:00→20:41)
--- NOTE | 2018-09-12 09:33 | Cardiology Report ---
APPROVED REPORT EKG Measurement Heart [id number] Normal sinus rhythm Normal ECG
--- NOTE | 2018-09-12 10:59 | Infectious Diseases Prog Note ---
Assessment/Plan Assessment/Plan Assessment: Probable early PNA vs Acute bronchitis -CXR: Hepatomegaly. Mild interstitial prominence. No focal infiltrate or consolidation. -influenza sc neg -sp cx normal resp melissa Afebrile No leukocytosis DM2 HTN HLD Plan: -Continue PO levaquin #2 (abx d#5/5) -09/10 SP Cefepime #4 -09/09 SP IV vancomycin #2 -f/u cx -Monitor CBC/CMP, temperatures -For EGD today Thank you for this consultation. Will continue to follow along with you. Discussed with RN. Subjective Allergies: Coded Allergies: No Known Allergies (Unverified , 09/08/18) Subjective afebrile at RA no leukocytosis feeling better for EGD today Objective Vital Signs Last 24 Hour Vital Signs Date Time Temp Pulse Resp B/P (MAP) Pulse Ox O2 Delivery O2 Flow Rate FiO2 09/12/18 09:00 Nasal Cannula 3.0 09/12/18 08:00 98.1 68 16 122/73 (89) 94 09/12/18 04:00 97.5 71 20 138/60 (86) 97 09/12/18 00:00 98.6 71 20 124/71 (88) 98 09/11/18 21:00 Nasal Cannula 3.0 09/11/18 20:35 Nasal Cannula 2.0 28 09/11/18 20:34 68 20 Nasal Cannula 2.0 28 09/11/18 20:34 96 Nasal Cannula 2.0 28 09/11/18 20:00 98.7 85 20 125/85 (98) 98 09/11/18 16:00 98.1 68 18 121/83 (96) 94 09/11/18 12:00 97.9 66 18 124/88 (100) Height (Feet): 5 Height (Inches): 3.00 Weight (Pounds): 181 Objective General Appearance: WD/WN Lines, tubes and drains: peripheral HEENT: normocephalic, atraumatic Neck: non-tender, normal alignment Respiratory/Chest: chest wall non-tender, rhonchi - left, rhonchi - right Cardiovascular/Chest: normal peripheral pulses, normal rate, regular rhythm Abdomen: normal bowel sounds, non tender Skin Exam: normal pigmentation 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: 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 grossly normal, no motor/sensory deficits Laboratory Tests Test 09/12/18 05:00 White Blood Count 6.0 K/UL (4.8-10.8) Red Blood Count 4.45 M/UL (4.70-6.10) L Hemoglobin 13.7 G/DL (14.2-18.0) L Hematocrit 40.1 % (42.0-52.0) L Mean Corpuscular Volume 90 FL (80-99) Mean Corpuscular Hemoglobin 30.8 PG (27.0-31.0) Mean Corpuscular Hemoglobin Concent 34.3 G/DL (32.0-36.0) Red Cell Distribution Width 12.3 % (11.6-14.8) Platelet Count 134 K/UL (150-450) L Mean Platelet Volume 6.5 FL (6.5-10.1) Neutrophils (%) (Auto) 52.3 % (45.0-75.0) Lymphocytes (%) (Auto) 31.5 % (20.0-45.0) Monocytes (%) (Auto) 12.6 % (1.0-10.0) H Eosinophils (%) (Auto) 2.7 % (0.0-3.0) Basophils (%) (Auto) 0.9 % (0.0-2.0) Prothrombin Time 11.3 SEC (9.30-11.50) Prothromb Time International Ratio 1.1 (0.9-1.1) Activated Partial Thromboplast Time 36 SEC (23-33) H Sodium Level 140 MMOL/L (136-145) Potassium Level 4.6 MMOL/L (3.5-5.1) Chloride Level 106 MMOL/L (98-107) Carbon Dioxide Level 34 MMOL/L (21-32) H Anion Gap 1 mmol/L (5-15) L Blood Urea Nitrogen 19 mg/dL (7-18) H Creatinine 0.9 MG/DL (0.55-1.30) Estimat Glomerular Filtration Rate mL/min (>60) Glucose Level 104 MG/DL (74-106) Calcium Level 9.0 MG/DL (8.5-10.1) Current Medications Medications (Trade) Dose Ordered Sig/Elio Route PRN Reason Start Time Stop Time Status Last Admin Dose Admin Acetaminophen (Tylenol) 650 mg Q4H PRN ORAL FEVER (temp>100.5F) 311/19 21:45 10/08/18 13:44 Albuterol/ Ipratropium (Albuterol/ Ipratropium) 3 ml Q4H PRN HHN Shortness of Breath 09/09/18 21:45 09/13/18 13:44 Dextrose (Dextrose 50%) 25 ml Q30M PRN IV Hypoglycemia 09/09/18 21:45 10/08/18 13:44 Dextrose (Dextrose 50%) 50 ml Q30M PRN IV Hypoglycemia 09/09/18 21:45 10/08/18 13:44 Heparin Sodium (Porcine) (Heparin 5000 units/ml) 5,000 units EVERY 12 HOURS SUBQ 09/10/18 09:00 10/08/18 20:59 Insulin Aspart (NovoLOG) BEFORE MEALS AND HS SUBQ 09/10/18 06:30 10/08/18 16:29 09/11/18 21:06 Levofloxacin (Levaquin) 500 mg DAILY ORAL 09/12/18 09:00 09/19/18 08:59 Ondansetron HCl (Zofran) 4 mg Q6H PRN IVP Nausea & Vomiting 09/10/18 01:45 10/08/18 13:44 Pantoprazole (Protonix) 40 mg DAILY ORAL 09/12/18 09:00 10/12/18 08:59 Polyethylene Glycol (Miralax) 17 gm DAILYPRN PRN ORAL Constipation 09/10/18 13:45 10/08/18 13:44 Promethazine HCl/ Codeine (Phenergan with Codeine) 5 ml EVERY 6 HOURS ORAL 09/10/18 00:00 10/08/18 12:29 09/11/18 18:17 Sucralfate (Carafate) 1 gm AC+HS ORAL 09/11/18 16:30 10/11/18 16:29 09/11/18 21:01 Adrienne Aquino M.D. Sep 12, 2018 10:59
--- NOTE | 2018-09-12 11:37 | Pre-Procedure Note/Attestation ---
Pre-Procedure Note/Attestation Complete Prior to Procedure Planned Procedure: not applicable Procedure Narrative: egd Indications for Procedure Pre-Operative Diagnosis: chronic GERD Attestation I attest that I discussed the nature of the procedure; its benefits; risks and complications; and alternatives (and the risks and benefits of such alternatives ), prior to the procedure, with the patient (or the patient's legal direct customer service representative). I attest that, if there was a reasonable possibility of needing a blood transfusion, the patient (or the patient's legal direct customer service representative) was given the [facility] standardized written summary, pursuant to the [place] Blood Safety Act ([place] Health and Safety Code # 1645, as amended). I attest that I re-evaluated the patient just prior to the surgery and that there has been no change in the patient's H&P, except as documented below: Vitaliy Britton MD Sep 12, 2018 11:36
--- NOTE | 2018-09-12 11:38 | General Progress Note ---
Assessment/Plan Problem List: (1) Chronic GERD ICD Codes: K21.9 - Gastro-esophageal reflux disease without esophagitis SNOMED: 01829652, 042086976 (2) Abdominal pain ICD Codes: R10.9 - Unspecified abdominal pain SNOMED: 75037586 (3) Chest pain ICD Codes: R07.9 - Chest pain, unspecified SNOMED: 80592415 (4) History of hypertension ICD Codes: Z86.79 - Personal history of other diseases of the circulatory system SNOMED: 327208251 (5) Diabetes mellitus ICD Codes: E11.9 - Type 2 diabetes mellitus without complications SNOMED: 10297809 (6) Bronchitis ICD Codes: J40 - Bronchitis, not specified as acute or chronic SNOMED: 56777193 Assessment/Plan plan EGD for today Subjective ROS Limited/Unobtainable: Yes Allergies: Coded Allergies: No Known Allergies (Unverified , 09/08/18) Objective Last 24 Hour Vital Signs Date Time Temp Pulse Resp B/P (MAP) Pulse Ox O2 Delivery O2 Flow Rate FiO2 09/12/18 09:50 95 Nasal Cannula 2.0 28 09/12/18 09:50 66 20 Nasal Cannula 2.0 28 09/12/18 09:50 Nasal Cannula 2.0 09/12/18 09:00 Nasal Cannula 3.0 09/12/18 08:00 98.1 68 16 122/73 (89) 94 09/12/18 04:00 97.5 71 20 138/60 (86) 97 09/12/18 00:00 98.6 71 20 124/71 (88) 98 09/11/18 21:00 Nasal Cannula 3.0 09/11/18 20:35 Nasal Cannula 2.0 28 09/11/18 20:34 68 20 Nasal Cannula 2.0 28 09/11/18 20:34 96 Nasal Cannula 2.0 28 09/11/18 20:00 98.7 85 20 125/85 (98) 98 09/11/18 16:00 98.1 68 18 121/83 (96) 94 09/11/18 12:00 97.9 66 18 124/88 (100) Intake and Output 09/11/18 09/12/18 19:00 07:00 # Voids 3 Laboratory Tests 09/12/18 05:00: White Blood Count 6.0, Red Blood Count 4.45L, Hemoglobin 13.7L, Hematocrit 40.1L , Mean Corpuscular Volume 90, Mean Corpuscular Hemoglobin 30.8, Mean Corpuscular Hemoglobin Concent 34.3, Red Cell Distribution Width 12.3, Platelet Count 134L, Mean Platelet Volume 6.5, Neutrophils (%) (Auto) 52.3, Lymphocytes ( %) (Auto) 31.5, Monocytes (%) (Auto) 12.6H, Eosinophils (%) (Auto) 2.7, Basophils (%) (Auto) 0.9, Prothrombin Time 11.3, Prothromb Time International Ratio 1.1, Activated Partial Thromboplast Time 36H, Sodium Level 140, Potassium Level 4.6, Chloride Level 106, Carbon Dioxide Level 34H, Anion Gap 1L, Blood Urea Nitrogen 19H, Creatinine 0.9, Estimat Glomerular Filtration Rate , Glucose Level 104, Calcium Level 9.0 Height (Feet): 5 Height (Inches): 3.00 Weight (Pounds): 181 General Appearance: alert EENT: normal ENT inspection Neck: supple Cardiovascular: normal rate Respiratory/Chest: decreased breath sounds Abdomen: normal bowel sounds, non tender, soft Extremities: non-tender Vitaliy Britton MD Sep 12, 2018 11:38
--- NOTE | 2018-09-12 11:46 | Anethesia Preoperative Eval ---
Anesthesia Pre-op PMH/ROS General Date of Evaluation: Sep 12, 2018 Time of Evaluation: 11:40 Anesthesiologist: Tenisha Bourgeois CRNA ASA Score: ASA 3 Mallampati Score Class I : Soft palate, uvula, fauces, pillars visible Class II: Soft palate, uvula, fauces visible Class III: Soft palate, base of uvula visible Class IV: Only hard plate visible Mallampati Classification: Class II Surgeon: Reba Diagnosis: abdominal pain Surgical Procedure: EGD diagnostic Anesthesia History: none Social History: smoking Family History: no anesthesia problems Allergies: Coded Allergies: No Known Allergies (Unverified , 09/08/18) Medications: see eMAR Patient NPO?: Yes NPO Date: Sep 12, 2018 NPO Time: 00:00 Past Medical History Cardiovascular: Reports: HTN; Denies: CAD, MA, valve dz, arrhythmia, other Pulmonary: Reports: other - pneumonia, bronchitis, currently on 2 LPM NC; Denies: asthma, COPD, JULISSA Gastrointestinal/Genitourinary: Reports: GERD; Denies: CRI, ESRD, other Neurologic/Psychiatric: Denies: dementia, CVA, depression/anxiety, TIA, other Endocrine: Reports: DM HEENT: Denies: cataract (L), cataract (R), glaucoma, LA JOLLA (L), LA JOLLA (R), other Hematology/Immune: Denies: anemia, DVT, bleeding disorder, other Musculoskeletal/Integumentary: Denies: OA, RA, DJD, DDD, edema, other PMH Narrative: as above PSxH Narrative: see H & P Anesthesia Pre-op Phys. Exam Physician Exam Last Vital Signs Date Time Temp Pulse Resp B/P (MAP) Pulse Ox O2 Delivery O2 Flow Rate FiO2 09/12/18 09:50 95 Nasal Cannula 2.0 28 09/12/18 09:50 66 20 09/12/18 08:00 98.1 122/73 (89) Constitutional: NAD Neurologic: CN 2-12 intact Cardiovascular: RRR Respiratory: CTA Gastrointestinal: S/NT/ND Airway Exam Mallampati Score: Class II MO: full Neck: FROM TMD: > 3FB ROM: full Teeth: intact Dentures: no upper, no lower Anesthesia Pre-op A/P Labs Hematology Test 09/12/18 05:00 White Blood Count 6.0 K/UL (4.8-10.8) Red Blood Count 4.45 M/UL (4.70-6.10) L Hemoglobin 13.7 G/DL (14.2-18.0) L Hematocrit 40.1 % (42.0-52.0) L Mean Corpuscular Volume 90 FL (80-99) Mean Corpuscular Hemoglobin 30.8 PG (27.0-31.0) Mean Corpuscular Hemoglobin Concent 34.3 G/DL (32.0-36.0) Red Cell Distribution Width 12.3 % (11.6-14.8) Platelet Count 134 K/UL (150-450) L Mean Platelet Volume 6.5 FL (6.5-10.1) Neutrophils (%) (Auto) 52.3 % (45.0-75.0) Lymphocytes (%) (Auto) 31.5 % (20.0-45.0) Monocytes (%) (Auto) 12.6 % (1.0-10.0) H Eosinophils (%) (Auto) 2.7 % (0.0-3.0) Basophils (%) (Auto) 0.9 % (0.0-2.0) Coagulation Test 09/12/18 05:00 Prothrombin Time 11.3 SEC (9.30-11.50) Prothromb Time International Ratio 1.1 (0.9-1.1) Activated Partial Thromboplast Time 36 SEC (23-33) H Chemistry Test 09/12/18 05:00 Sodium Level 140 MMOL/L (136-145) Potassium Level 4.6 MMOL/L (3.5-5.1) Chloride Level 106 MMOL/L (98-107) Carbon Dioxide Level 34 MMOL/L (21-32) H Anion Gap 1 mmol/L (5-15) L Blood Urea Nitrogen 19 mg/dL (7-18) H Creatinine 0.9 MG/DL (0.55-1.30) Estimat Glomerular Filtration Rate mL/min (>60) Glucose Level 104 MG/DL (74-106) Calcium Level 9.0 MG/DL (8.5-10.1) Studies Pre-op Studies: EKG - NSR, CXR - Hepatomegaly. Mild interstitial prominence. No focal infiltrate or , echo - EF 60, small posterior pericardial effusion Risk Assessment & Plan Assessment: ASA 3,ok to proceed Plan: MAC Status Change Before Surgery: No Pre-Antibiotics Given Within 1 Hr of Incision: No Tenisha Bourgeois CRNA Sep 12, 2018 11:46
[2018-09-12] MEDS ORDERED: NS 500ML IVPB ONE (11:55)
[2018-09-12] MEDS ORDERED: Propofol 200mg/20ml IV ONE (12:00)
[2018-09-12] MEDS ORDERED: Lidocaine 1% MPF 10mg/ml 5ml ONE (12:00)
[2018-09-12] MEDS ORDERED: Albuterol ud Inhalation ONE (12:22)
--- NOTE | 2018-09-12 12:27 | Immediate Post-Op Evaluation ---
Immediate Post-Op Evalulation Immediate Post-Op Evalulation Procedure: EGD diagnostic Date of Evaluation: Sep 12, 2018 Time of Evaluation: 12:13 IV Fluids: 0.9% NS 100 ml Blood Pressure Systolic: 109 Blood Pressure Diastolic: 68 Pulse Rate: 71 Respiratory Rate: 28 O2 Sat by Pulse Oximetry: 97 Temperature (Fahrenheit): 97.4 Pain Score (1-10): 0 Nausea: No Vomiting: No Complications none, VSS, Patient Status: awake, reacts, none - PRN albuterol neb x1 for wheezing Hydration Status: adequate Given Within 1 Hr of Incision: Tenisha Anton CRNA Sep 12, 2018 12:27
[2018-09-12] MEDS ORDERED: Albuterol/Ipratropium 3ml neb HHN PRN (12:30)
[2018-09-12] MEDS: Albuterol ud Inhalation HHN SCH ×4 (12:33→23:38)
--- NOTE | 2018-09-12 12:35 | Endoscopy Procedure Note ---
Endoscopy Procedure Note General Indication for Procedure: GERD Procedures Performed: EGD Operative Findings/Diagnosis: gastrtis, esophagitis Specimen: yes Pt Tolerated Procedure Well: Yes Estimated Blood Loss: none Anesthesia Anesthesiologist: shanice Anesthesia: MAC Inserted Devices Implant(s) used?: No GI Core Measures 50 yrs or older w/o bx or poly: Not Applicable 10yrs. F/U not recommended: Not Applicable Vitaliy Britton MD Sep 12, 2018 12:35
--- NOTE | 2018-09-12 12:56 | General Progress Note ---
Assessment/Plan Problem List: (1) SOB (shortness of breath) ICD Codes: R06.02 - Shortness of breath SNOMED: 598831597 (2) Chest pain ICD Codes: R07.9 - Chest pain, unspecified SNOMED: 51125900 (3) Coughing ICD Codes: R05 - Cough SNOMED: 63379311 (4) Diabetes mellitus ICD Codes: E11.9 - Type 2 diabetes mellitus without complications SNOMED: 19062462 Status: unchanged Assessment/Plan o2 pulm tx cardio f/u cbc bmp am Subjective Constitutional: Reports: weakness Allergies: Coded Allergies: No Known Allergies (Unverified , 09/08/18) All Systems: reviewed and negative except above Subjective sl anxious awaiting egd Objective Last 24 Hour Vital Signs Date Time Temp Pulse Resp B/P (MAP) Pulse Ox O2 Delivery O2 Flow Rate FiO2 09/12/18 12:44 97.2 68 19 128/72 99 Nasal Cannula 3 09/12/18 12:36 70 20 121/70 100 Nasal Cannula 3 09/12/18 12:30 71 23 115/73 100 Nasal Cannula 3 09/12/18 12:27 71 28 97 09/12/18 12:25 69 22 113/70 100 Nasal Cannula 3 09/12/18 12:15 68 20 110/59 99 Nasal Cannula 3 09/12/18 12:13 97.4 69 20 109/69 97 Nasal Cannula 3 09/12/18 09:50 95 Nasal Cannula 2.0 28 09/12/18 09:50 66 20 Nasal Cannula 2.0 28 09/12/18 09:50 Nasal Cannula 2.0 09/12/18 09:00 Nasal Cannula 3.0 09/12/18 08:00 98.1 68 16 122/73 (89) 94 09/12/18 04:00 97.5 71 20 138/60 (86) 97 09/12/18 00:00 98.6 71 20 124/71 (88) 98 09/11/18 21:00 Nasal Cannula 3.0 09/11/18 20:35 Nasal Cannula 2.0 28 09/11/18 20:34 68 20 Nasal Cannula 2.0 28 09/11/18 20:34 96 Nasal Cannula 2.0 28 09/11/18 20:00 98.7 85 20 125/85 (98) 98 09/11/18 16:00 98.1 68 18 121/83 (96) 94 Intake and Output 09/11/18 09/12/18 19:00 07:00 # Voids 3 Laboratory Tests 09/12/18 05:00: White Blood Count 6.0, Red Blood Count 4.45L, Hemoglobin 13.7L, Hematocrit 40.1L , Mean Corpuscular Volume 90, Mean Corpuscular Hemoglobin 30.8, Mean Corpuscular Hemoglobin Concent 34.3, Red Cell Distribution Width 12.3, Platelet Count 134L, Mean Platelet Volume 6.5, Neutrophils (%) (Auto) 52.3, Lymphocytes ( %) (Auto) 31.5, Monocytes (%) (Auto) 12.6H, Eosinophils (%) (Auto) 2.7, Basophils (%) (Auto) 0.9, Prothrombin Time 11.3, Prothromb Time International Ratio 1.1, Activated Partial Thromboplast Time 36H, Sodium Level 140, Potassium Level 4.6, Chloride Level 106, Carbon Dioxide Level 34H, Anion Gap 1L, Blood Urea Nitrogen 19H, Creatinine 0.9, Estimat Glomerular Filtration Rate , Glucose Level 104, Calcium Level 9.0 Height (Feet): 5 Height (Inches): 3.00 Weight (Pounds): 181 General Appearance: lethargic EENT: normal ENT inspection Neck: normal alignment Cardiovascular: normal peripheral pulses, normal rate, regular rhythm Respiratory/Chest: chest wall non-tender, lungs clear, normal breath sounds Abdomen: normal bowel sounds, non tender, soft Extremities: normal inspection Edema: no edema noted Arm (L), no edema noted Arm (R), no edema noted Leg (L), no edema noted Leg (R), no edema noted Pedal (L), no edema noted Pedal (R), no edema noted Generalized Neurologic: motor weakness Skin: normal pigmentation, warm/dry Sim Bello DO Sep 12, 2018 12:56
--- NOTE | 2018-09-12 12:59 | Pulmonology Progress Note ---
Assessment/Plan Problems: (1) Acute bronchitis (2) Pneumonitis (3) Diabetes mellitus (4) History of hypertension Assessment/Plan c/o acid gastric pain improving slowly sputum is negative so far echo reviewed, EF 60% continue abx pt/ot dvt prophylaxis. Subjective ROS Limited/Unobtainable: No Constitutional: Reports: no symptoms HEENT: Repors: no symptoms Respiratory: Reports: no symptoms Allergies: Coded Allergies: No Known Allergies (Unverified , 09/08/18) Objective Last 24 Hour Vital Signs Date Time Temp Pulse Resp B/P (MAP) Pulse Ox O2 Delivery O2 Flow Rate FiO2 09/12/18 12:44 97.2 68 19 128/72 99 Nasal Cannula 3 09/12/18 12:36 70 20 121/70 100 Nasal Cannula 3 09/12/18 12:30 71 23 115/73 100 Nasal Cannula 3 09/12/18 12:27 71 28 97 09/12/18 12:25 69 22 113/70 100 Nasal Cannula 3 09/12/18 12:15 68 20 110/59 99 Nasal Cannula 3 09/12/18 12:13 97.4 69 20 109/69 97 Nasal Cannula 3 09/12/18 09:50 95 Nasal Cannula 2.0 28 09/12/18 09:50 66 20 Nasal Cannula 2.0 28 09/12/18 09:50 Nasal Cannula 2.0 09/12/18 09:00 Nasal Cannula 3.0 09/12/18 08:00 98.1 68 16 122/73 (89) 94 09/12/18 04:00 97.5 71 20 138/60 (86) 97 09/12/18 00:00 98.6 71 20 124/71 (88) 98 09/11/18 21:00 Nasal Cannula 3.0 09/11/18 20:35 Nasal Cannula 2.0 28 09/11/18 20:34 68 20 Nasal Cannula 2.0 28 09/11/18 20:34 96 Nasal Cannula 2.0 28 09/11/18 20:00 98.7 85 20 125/85 (98) 98 09/11/18 16:00 98.1 68 18 121/83 (96) 94 Intake and Output 09/11/18 09/12/18 19:00 07:00 # Voids 3 General Appearance: WD/WN HEENT: normocephalic, atraumatic Respiratory/Chest: chest wall non-tender, lungs clear Cardiovascular: normal peripheral pulses, normal rate Abdomen: normal bowel sounds, soft, non tender Neurologic/Psychiatric: 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-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 grossly normal, abnormal gait Laboratory Tests 09/12/18 05:00: White Blood Count 6.0, Red Blood Count 4.45L, Hemoglobin 13.7L, Hematocrit 40.1L , Mean Corpuscular Volume 90, Mean Corpuscular Hemoglobin 30.8, Mean Corpuscular Hemoglobin Concent 34.3, Red Cell Distribution Width 12.3, Platelet Count 134L, Mean Platelet Volume 6.5, Neutrophils (%) (Auto) 52.3, Lymphocytes ( %) (Auto) 31.5, Monocytes (%) (Auto) 12.6H, Eosinophils (%) (Auto) 2.7, Basophils (%) (Auto) 0.9, Prothrombin Time 11.3, Prothromb Time International Ratio 1.1, Activated Partial Thromboplast Time 36H, Sodium Level 140, Potassium Level 4.6, Chloride Level 106, Carbon Dioxide Level 34H, Anion Gap 1L, Blood Urea Nitrogen 19H, Creatinine 0.9, Estimat Glomerular Filtration Rate , Glucose Level 104, Calcium Level 9.0 Current Medications Medications (Trade) Dose Ordered Sig/Elio Route PRN Reason Start Time Stop Time Status Last Admin Dose Admin Acetaminophen (Tylenol) 650 mg Q4H PRN ORAL FEVER (temp>100.5F) 09/09/18 21:45 10/08/18 13:44 Albuterol Sulfate (Proventil) 2.5 mg Q4HRT HHN 09/12/18 12:29 09/17/18 12:28 09/12/18 12:33 Dextrose (Dextrose 50%) 25 ml Q30M PRN IV Hypoglycemia 09/09/18 21:45 10/08/18 13:44 Dextrose (Dextrose 50%) 50 ml Q30M PRN IV Hypoglycemia 09/09/18 21:45 10/08/18 13:44 Heparin Sodium (Porcine) (Heparin 5000 units/ml) 5,000 units EVERY 12 HOURS SUBQ 09/10/18 09:00 10/08/18 20:59 Insulin Aspart (NovoLOG) BEFORE MEALS AND HS SUBQ 09/10/18 06:30 10/08/18 16:29 09/11/18 21:06 Levofloxacin (Levaquin) 500 mg DAILY ORAL 09/12/18 09:00 09/19/18 08:59 Ondansetron HCl (Zofran) 4 mg Q6H PRN IVP Nausea & Vomiting 09/10/18 01:45 10/08/18 13:44 Pantoprazole (Protonix) 40 mg DAILY ORAL 09/12/18 09:00 10/12/18 08:59 Polyethylene Glycol (Miralax) 17 gm DAILYPRN PRN ORAL Constipation 09/10/18 13:45 10/08/18 13:44 Promethazine HCl/ Codeine (Phenergan with Codeine) 5 ml EVERY 6 HOURS ORAL 09/10/18 00:00 10/08/18 12:29 09/11/18 18:17 Sucralfate (Carafate) 1 gm AC+HS ORAL 09/11/18 16:30 10/11/18 16:29 09/11/18 21:01 Wolfgang Buchanan MD Sep 12, 2018 12:59
--- NOTE | 2018-09-12 13:13 | Consultation ---
DATE OF CONSULTATION: 09/09/2018 CARDIOLOGY CONSULTATION CONSULTING PHYSICIAN: Leonel Crews M.D. REFERRING PHYSICIAN: Sim Bello D.O. REASON FOR CONSULTATION: Management of shortness of breath. HISTORY OF PRESENT ILLNESS: The patient is a very unfortunate 83-year-old gentleman, who presents to the hospital with increased difficulty breathing for about three days as well as chest tightness, nonproductive cough, and increased chest congestion. The patient at the time of arrival to the facility, had a blood pressure of 132/73 mmHg and heart rate of 91 beats per minute. A 12-lead electrocardiogram was significant for sinus rhythm at a rate of 81 with evidence of left axis deviation and left anterior fascicular block. A chest x-ray at the time of arrival to the hospital was significant for mild interstitial prominence, but no acute infiltration. The patient was admitted to telemetry for further evaluation and management. Cardiology consultation was made at request of Dr. Bello for assessment and evaluation of dyspnea from Cardiology standpoint. PAST MEDICAL HISTORY: Includes hypercholesterolemia, hypertension, history of gastroesophageal reflux disease, and diabetes mellitus. PAST SURGICAL HISTORY: None. ALLERGIES: No known drug allergies. MEDICATIONS: List of medications includes albuterol 2 puffs inhaler every 4 hours p.r.n. wheezing and cough, atenolol 100 mg p.o. daily, bupropion XL 300 mg p.o. daily, guaifenesin 5 mL q.4 h., metformin 500 mg twice daily, omeprazole 40 mg p.o. daily, prednisone 40 mg p.o. daily, and Crestor 5 mg p.o. daily. SOCIAL HISTORY: Denies any tobacco, alcohol, or illicit drug use. REVIEW OF SYSTEMS: A 12-system review done essentially negative except what is mentioned in the history of present illness. PHYSICAL EXAMINATION: VITAL SIGNS: Blood pressure is 132/73, pulse of 91, respirations of 24, temperature 98.3 degrees Fahrenheit, and O2 saturation 95% on room air. GENERAL: The patient is a very unfortunate anxious 83-year-old gentleman, in no apparent respiratory distress. Alert and oriented x4. HEENT: Atraumatic and normocephalic. Anicteric. Pupils are equal, round, and accommodation. Extraocular muscles intact. NECK: JVP less than 5 cm. No carotid bruit. Carotid upstroke is 2+ bilaterally. CARDIOVASCULAR: Normal S1, S2. Regular rate and rhythm. No murmurs, gallops, or rubs. PMI is at fourth intercostal space at the midclavicular line. LUNGS: Diminished breath sounds with expiratory rhonchi. Prolonged expiratory phase. ABDOMEN: Soft, nontender, and nondistended. No hepatosplenomegaly. Positive bowel sounds. EXTREMITIES: No evidence of edema, clubbing, or cyanosis. LABORATORY FINDINGS: WBC was 9.3, hemoglobin of 15.2, hematocrit 45.0, and platelet count is 180,000. Sodium 144, potassium 4.0, chloride 105, bicarbonate 31, BUN of 19, creatinine 1.0, glucose is 142, and calcium is 9.0. ProBNP was 129. Troponin I was 0.002. ASSESSMENT AND PLAN: The patient is a very unfortunate 83-year-old gentleman, seen in Cardiology consultation. 1. Dyspnea, most likely secondary to acute exacerbation of COPD/asthma, possibly triggered by acute viral bronchitis. The patient reported to be obtaining treatment with Solu-Medrol and nebulizer treatment as well as pulmonary toilet. No cardiac stress test is required at this time. 2. Prediabetes, on metformin. 3. Hypercholesterolemia. 4. History of hypertension. I would like to switch from beta-sandhya to calcium-channel sandhya given acute bronchoconstriction. I would like to thank you, Dr. Bello, for allowing me to participate in the care of this patient. Leonel Crews M.D. DR: RAMÍREZ JOB#: [id number] CC:
--- NOTE | 2018-09-12 13:37 | NUR ---
NURSE NOTES: Phenergan and Levaquin will be given now pt NPO for EGD has returned from procedure
[2018-09-12] MEDS ORDERED: Levofloxacin 500mg tab ORAL ONE (13:45)
[2018-09-12] MEDS ORDERED: Levofloxacin 500mg tab ORAL SCH ×2 (14:00)
--- NOTE | 2018-09-12 15:05 | NUR ---
[facility] SI:PNEUMONITIS VS: BP 110/59, P 68, T 97.2, RR 23, SpO2 97 on 3.0L NC RBC 4.45, Hgb 13.7, Hct 40.1, Plt. Count 134, BUN 19, APTT 36 IS:PREVACID 30mg LEVOFLOXACIN 500mg PROVENTIL 2.5mg NS 500ml PHENERGAN W/ CODEINE 5ml MED/SURG STATUS
--- NOTE | 2018-09-12 15:57 | NUR ---
NURSE NOTES: Pt returned from EGD procedure in stable condition. Dr Buchanan here seen pt, pt complained of severe heart burn, Prevscid given and medication added to medication regime. Po antibiotics given as well due to NPO status in AM. Current plan of care will be followed
--- NOTE | 2018-09-12 18:30 | Procedure Note ---
DATE OF PROCEDURE: 09/12/2018 SURGEON: Vitaliy Britton M.D. PROCEDURE: Upper endoscopy with biopsy. ANESTHESIA: Per Tenisha MEDEL. INSTRUMENT: Olympus adult flexible upper endoscope. INDICATION: Chronic GERD. REASON FOR PROCEDURE: The procedure, risks, benefits, and possible consequences, including hemorrhage, aspiration, perforation and infection, and alternative treatments, were explained to the patient/legal guardian by Dr. Vitaliy Britton and the patient/legal guardian understood and accepted these risks. PROCEDURE IN DETAIL: After informed consent was obtained and the patient was adequately sedated, Olympus upper endoscope was advanced from mouth into the second portion of the duodenum and retroflexion performed in the stomach. The patient had evidence of distal esophagitis, evidence of medium-sized hiatal hernia. In the stomach, there was diffuse gastritis. Random biopsy from antrum was obtained to rule out H. pylori infection. At this time, the upper endoscope was retrieved and procedure was terminated. SUMMARY OF FINDINGS: 1. Hiatal hernia. 2. Distal esophagitis. 3. Gastritis, status post biopsy. RECOMMENDATIONS: 1. Reflux measures, PPI, and Carafate. We will discontinue Carafate in a week or two. 2. Follow biopsies and treat accordingly. 3. We will resume diet. 4. The patient will need an outpatient followup for colonoscopy. I want to thank Dr. Sim Bello for this kind referral. Vitaliy Britton M.D. DR: VAHID JOB#: [id number] CC: Sim Bello D.O.
--- NOTE | 2018-09-12 19:46 | NUR ---
HAND-OFF: Report given to Amanda ESCOBAR.
--- NOTE | 2018-09-12 19:58 | NUR ---
NURSE NOTES: Received report from LUZ Babin. Patient A&Ox4, on nasal cannula 3L/min. No signs of distress or labored breathing. IV intact, patent, and saline locked. Bed in lowest position with call light in reach. Will continue with plan of care.
--- NOTE | 2018-09-12 21:03 | Cardiology Report ---
APPROVED REPORT EKG Measurement Heart [id number] Normal sinus rhythm Prolonged QT Abnormal ECG
--- NOTE | 2018-09-12 23:58 | Cardiology Progress Note ---
Assessment/Plan Assessment/Plan 1. Dyspnea, most likely secondary to acute exacerbation of COPD/asthma, possibly triggered by acute viral bronchitis, No cardiac stress test is required at this time. 2. Prediabetes, on metformin. 3. Hypercholesterolemia. 4. History of hypertension, on diet control for now. Subjective Subjective Sinus rhythm at rate of 68. Objective Last 24 Hour Vital Signs Date Time Temp Pulse Resp B/P (MAP) Pulse Ox O2 Delivery O2 Flow Rate FiO2 09/12/18 23:42 67 20 98 Nasal Cannula 2.0 28 09/12/18 23:33 78 20 97 Nasal Cannula 2.0 28 09/12/18 21:04 Nasal Cannula 2.0 28 09/12/18 21:03 Nasal Cannula 2.0 28 09/12/18 21:01 73 20 Nasal Cannula 2.0 28 09/12/18 21:01 97 Nasal Cannula 2.0 28 09/12/18 21:01 Nasal Cannula 2.0 28 09/12/18 16:00 98.2 70 18 140/53 (82) 100 09/12/18 12:44 97.2 68 19 128/72 99 Nasal Cannula 3 09/12/18 12:36 70 20 121/70 100 Nasal Cannula 3 09/12/18 12:30 71 23 115/73 100 Nasal Cannula 3 09/12/18 12:27 71 28 97 09/12/18 12:25 69 22 113/70 100 Nasal Cannula 3 09/12/18 12:15 68 20 110/59 99 Nasal Cannula 3 09/12/18 12:13 97.4 69 20 109/69 97 Nasal Cannula 3 09/12/18 09:50 95 Nasal Cannula 2.0 28 09/12/18 09:50 66 20 Nasal Cannula 2.0 28 09/12/18 09:50 Nasal Cannula 2.0 09/12/18 09:00 Nasal Cannula 3.0 09/12/18 08:00 98.1 68 16 122/73 (89) 94 09/12/18 04:00 97.5 71 20 138/60 (86) 97 09/12/18 00:00 98.6 71 20 124/71 (88) 98 Intake and Output 09/11/18 09/12/18 19:00 07:00 # Voids 3 Laboratory Tests Test 09/12/18 05:00 White Blood Count 6.0 K/UL (4.8-10.8) Red Blood Count 4.45 M/UL (4.70-6.10) L Hemoglobin 13.7 G/DL (14.2-18.0) L Hematocrit 40.1 % (42.0-52.0) L Mean Corpuscular Volume 90 FL (80-99) Mean Corpuscular Hemoglobin 30.8 PG (27.0-31.0) Mean Corpuscular Hemoglobin Concent 34.3 G/DL (32.0-36.0) Red Cell Distribution Width 12.3 % (11.6-14.8) Platelet Count 134 K/UL (150-450) L Mean Platelet Volume 6.5 FL (6.5-10.1) Neutrophils (%) (Auto) 52.3 % (45.0-75.0) Lymphocytes (%) (Auto) 31.5 % (20.0-45.0) Monocytes (%) (Auto) 12.6 % (1.0-10.0) H Eosinophils (%) (Auto) 2.7 % (0.0-3.0) Basophils (%) (Auto) 0.9 % (0.0-2.0) Prothrombin Time 11.3 SEC (9.30-11.50) Prothromb Time International Ratio 1.1 (0.9-1.1) Activated Partial Thromboplast Time 36 SEC (23-33) H Sodium Level 140 MMOL/L (136-145) Potassium Level 4.6 MMOL/L (3.5-5.1) Chloride Level 106 MMOL/L (98-107) Carbon Dioxide Level 34 MMOL/L (21-32) H Anion Gap 1 mmol/L (5-15) L Blood Urea Nitrogen 19 mg/dL (7-18) H Creatinine 0.9 MG/DL (0.55-1.30) Estimat Glomerular Filtration Rate mL/min (>60) Glucose Level 104 MG/DL (74-106) Calcium Level 9.0 MG/DL (8.5-10.1) Objective HEENT: Atraumatic and normocephalic. Anicteric. Pupils are equal, round, and accommodation. Extraocular muscles intact. NECK: JVP less than 5 cm. No carotid bruit. Carotid upstroke is 2+ bilaterally. CARDIOVASCULAR: Normal S1, S2. Regular rate and rhythm. No murmurs, gallops, or rubs. PMI is at fourth intercostal space at the midclavicular line. LUNGS: Diminished breath sounds with expiratory rhonchi. Prolonged expiratory phase. ABDOMEN: Soft, nontender, and nondistended. No hepatosplenomegaly. Positive bowel sounds. EXTREMITIES: No evidence of edema, clubbing, or cyanosis. Leonel Crews MD Sep 12, 2018 23:57
[2018-09-13] VITALS: BP 107/52
[2018-09-13] MEDS: Promethazine/Codeine 5ml UD ORAL SCH ×4 (00:36→17:04)
[2018-09-13] MEDS: Albuterol ud Inhalation HHN SCH ×4 (03:00→15:00)
[2018-09-13 04:00] VITALS: BP 139/50
[2018-09-13] MEDS: Sucralfate 1gm tab ORAL SCH ×3 (06:45→17:04)
[2018-09-13] MEDS: NovoLOG Insulin Flexpen SUBQ SCH ×3 (06:46→16:30)
[2018-09-13 07:20] LABS: BASOPHILS % (AUTO) 1.1 % (0.0-2.0); HEMATOCRIT 40.5 % (42.0-52.0); HEMOGLOBIN 13.7 G/DL (14.2-18.0); LYMPHOCYTES % (AUTO) 38.7 % (20.0-45.0); MEAN CORPUSCULAR VOLUME 90 FL (80-99); MONOCYTES % (AUTO) 12.8 % (1.0-10.0); NEUTROPHILS % (AUTO) 45.3 % (45.0-75.0); PLATELET COUNT 152 K/UL (150-450); RED BLOOD COUNT 4.49 M/UL (4.70-6.10); RED CELL DISTRIBUTION WIDTH 12.5 % (11.6-14.8); WHITE BLOOD COUNT 5.7 K/UL (4.8-10.8)
[2018-09-13 07:24] LABS: ANION GAP 0 mmol/L (5-15); BLOOD UREA NITROGEN 20 mg/dL (7-18); CARBON DIOXIDE 33 MMOL/L (21-32); CHLORIDE 108 MMOL/L (98-107); POTASSIUM 4.7 MMOL/L (3.5-5.1); SODIUM 141 MMOL/L (136-145)
--- NOTE | 2018-09-13 07:30 | NUR ---
NURSE NOTES: Received pt from LUZ WOLF. Pt is alert and orient x4. Pt has NC 3LMP. pt has intact iv access RH 20g is running well. all needs attended, bed is locked and is in the lowest position, call light within easy reach. will continue to monitor.
[2018-09-13 08:00] VITALS: BP 131/70
[2018-09-13] MEDS: Levofloxacin 500mg tab ORAL SCH (09:10)
[2018-09-13] MEDS: Heparin 5000 units/ml inj SUBQ SCH (09:11)
--- NOTE | 2018-09-13 10:07 | General Progress Note ---
Assessment/Plan Problem List: (1) Chronic GERD ICD Codes: K21.9 - Gastro-esophageal reflux disease without esophagitis SNOMED: 95144102, 859631802 (2) Abdominal pain ICD Codes: R10.9 - Unspecified abdominal pain SNOMED: 22604108 (3) Chest pain ICD Codes: R07.9 - Chest pain, unspecified SNOMED: 64309598 (4) History of hypertension ICD Codes: Z86.79 - Personal history of other diseases of the circulatory system SNOMED: 196247936 (5) Diabetes mellitus ICD Codes: E11.9 - Type 2 diabetes mellitus without complications SNOMED: 54346393 (6) Bronchitis ICD Codes: J40 - Bronchitis, not specified as acute or chronic SNOMED: 75323650 Assessment/Plan s/p EGD yesterday: SUMMARY OF FINDINGS: 1. Hiatal hernia. 2. Distal esophagitis. 3. Gastritis, status post biopsy. RECOMMENDATIONS: 1. Reflux measures, PPI, and Carafate. We will discontinue Carafate in a week or two. 2. Follow biopsies and treat accordingly. 3. We will resume diet. 4. The patient will need an outpatient followup for colonoscopy. Subjective ROS Limited/Unobtainable: Yes Allergies: Coded Allergies: No Known Allergies (Unverified , 09/08/18) Subjective no event Objective Last 24 Hour Vital Signs Date Time Temp Pulse Resp B/P (MAP) Pulse Ox O2 Delivery O2 Flow Rate FiO2 09/13/18 08:20 61 20 98 Nasal Cannula 2.0 28 09/13/18 08:13 97 Nasal Cannula 2.0 28 09/13/18 08:13 55 18 Nasal Cannula 2.0 28 09/13/18 08:13 Nasal Cannula 2.0 28 09/13/18 08:12 55 18 97 Nasal Cannula 2.0 28 09/13/18 08:00 97.5 76 19 131/70 (90) 97 09/13/18 04:38 Nasal Cannula 2.0 28 09/13/18 04:37 Nasal Cannula 2.0 28 09/13/18 04:00 97.6 63 18 139/50 (79) 100 09/13/18 00:00 98.3 78 18 107/52 (70) 94 09/12/18 23:42 67 20 98 Nasal Cannula 2.0 28 09/12/18 23:33 78 20 97 Nasal Cannula 2.0 28 09/12/18 21:04 Nasal Cannula 2.0 28 09/12/18 21:03 Nasal Cannula 2.0 28 09/12/18 21:01 73 20 Nasal Cannula 2.0 28 09/12/18 21:01 97 Nasal Cannula 2.0 28 09/12/18 21:01 Nasal Cannula 2.0 28 09/12/18 21:00 Nasal Cannula 3.0 09/12/18 20:00 98.6 85 18 131/74 (93) 96 09/12/18 16:00 98.2 70 18 140/53 (82) 100 09/12/18 12:44 97.2 68 19 128/72 99 Nasal Cannula 3 09/12/18 12:36 70 20 121/70 100 Nasal Cannula 3 09/12/18 12:30 71 23 115/73 100 Nasal Cannula 3 09/12/18 12:27 71 28 97 09/12/18 12:25 69 22 113/70 100 Nasal Cannula 3 09/12/18 12:15 68 20 110/59 99 Nasal Cannula 3 09/12/18 12:13 97.4 69 20 109/69 97 Nasal Cannula 3 Intake and Output 09/12/18 09/13/18 19:00 07:00 Intake Total 150 ml Output Total 0 ml Balance 150 ml IV Total 150 ml Estimated Blood Loss 0 ml # Voids 4 Laboratory Tests 09/13/18 06:20: White Blood Count 5.7, Red Blood Count 4.49L, Hemoglobin 13.7L, Hematocrit 40.5L , Mean Corpuscular Volume 90, Mean Corpuscular Hemoglobin 30.6, Mean Corpuscular Hemoglobin Concent 33.9, Red Cell Distribution Width 12.5, Platelet Count 152, Mean Platelet Volume 6.3L, Neutrophils (%) (Auto) 45.3, Lymphocytes ( %) (Auto) 38.7, Monocytes (%) (Auto) 12.8H, Eosinophils (%) (Auto) 2.0, Basophils (%) (Auto) 1.1, Sodium Level 141, Potassium Level 4.7, Chloride Level 108H, Carbon Dioxide Level 33H, Anion Gap 0L, Blood Urea Nitrogen 20H, Creatinine 1.0, Estimat Glomerular Filtration Rate , Glucose Level 106, Calcium Level 9.0 Height (Feet): 5 Height (Inches): 3.00 Weight (Pounds): 181 General Appearance: alert EENT: normal ENT inspection Neck: supple Cardiovascular: normal rate Respiratory/Chest: decreased breath sounds Abdomen: normal bowel sounds, non tender, soft Extremities: non-tender Vitaliy Britton MD Sep 13, 2018 10:07
[2018-09-13 12:00] VITALS: BP 113/75
--- NOTE | 2018-09-13 12:40 | 48 Hour Post Anesthesia Eval ---
Post Anesthesia Evaluation Procedure: EGD diagnostic Date of Evaluation: Sep 13, 2018 Time of Evaluation: 12:40 Blood Pressure Systolic: 113 0: 75 Pulse Rate: 85 Respiratory Rate: 18 Temperature (Fahrenheit): 97.6 O2 Sat by Pulse Oximetry: 96 Airway: patent Nausea: No Vomiting: No Pain Intensity: 0 Hydration Status: adequate Cardiopulmonary Status: stable Mental Status/LOC: patient returned to baseline Follow-up Care/Observations: per hospitalist Post-Anesthesia Complications: none Follow-up care needed: N/A Tenisha Bourgeois CRNA Sep 13, 2018 12:40
--- NOTE | 2018-09-13 13:01 | General Progress Note ---
Assessment/Plan Problem List: (1) SOB (shortness of breath) ICD Codes: R06.02 - Shortness of breath SNOMED: 274313352 (2) Chest pain ICD Codes: R07.9 - Chest pain, unspecified SNOMED: 34003133 (3) Coughing ICD Codes: R05 - Cough SNOMED: 00165766 (4) Diabetes mellitus ICD Codes: E11.9 - Type 2 diabetes mellitus without complications SNOMED: 38059798 Status: stable, progressing Assessment/Plan o2 pulm tx cardio f/u cbc bmp am dc plan w hh Subjective Constitutional: Reports: weakness Allergies: Coded Allergies: No Known Allergies (Unverified , 09/08/18) All Systems: reviewed and negative except above Subjective sl cough Objective Last 24 Hour Vital Signs Date Time Temp Pulse Resp B/P (MAP) Pulse Ox O2 Delivery O2 Flow Rate FiO2 09/13/18 12:40 85 18 96 09/13/18 12:00 97.6 85 18 113/75 (88) 96 09/13/18 11:25 Room Air 21 09/13/18 11:25 Room Air 21 09/13/18 09:00 Nasal Cannula 3.0 09/13/18 08:20 61 20 98 Nasal Cannula 2.0 28 09/13/18 08:13 97 Nasal Cannula 2.0 28 09/13/18 08:13 55 18 Nasal Cannula 2.0 28 09/13/18 08:13 Nasal Cannula 2.0 28 09/13/18 08:12 55 18 97 Nasal Cannula 2.0 28 09/13/18 08:00 97.5 76 19 131/70 (90) 97 09/13/18 04:38 Nasal Cannula 2.0 28 09/13/18 04:37 Nasal Cannula 2.0 28 09/13/18 04:00 97.6 63 18 139/50 (79) 100 09/13/18 00:00 98.3 78 18 107/52 (70) 94 09/12/18 23:42 67 20 98 Nasal Cannula 2.0 28 09/12/18 23:33 78 20 97 Nasal Cannula 2.0 28 09/12/18 21:04 Nasal Cannula 2.0 28 09/12/18 21:03 Nasal Cannula 2.0 28 09/12/18 21:01 73 20 Nasal Cannula 2.0 28 09/12/18 21:01 97 Nasal Cannula 2.0 28 09/12/18 21:01 Nasal Cannula 2.0 28 09/12/18 21:00 Nasal Cannula 3.0 09/12/18 20:00 98.6 85 18 131/74 (93) 96 09/12/18 16:00 98.2 70 18 140/53 (82) 100 Intake and Output 09/12/18 09/13/18 19:00 07:00 Intake Total 150 ml Output Total 0 ml Balance 150 ml IV Total 150 ml Estimated Blood Loss 0 ml # Voids 4 Laboratory Tests 09/13/18 06:20: White Blood Count 5.7, Red Blood Count 4.49L, Hemoglobin 13.7L, Hematocrit 40.5L , Mean Corpuscular Volume 90, Mean Corpuscular Hemoglobin 30.6, Mean Corpuscular Hemoglobin Concent 33.9, Red Cell Distribution Width 12.5, Platelet Count 152, Mean Platelet Volume 6.3L, Neutrophils (%) (Auto) 45.3, Lymphocytes ( %) (Auto) 38.7, Monocytes (%) (Auto) 12.8H, Eosinophils (%) (Auto) 2.0, Basophils (%) (Auto) 1.1, Sodium Level 141, Potassium Level 4.7, Chloride Level 108H, Carbon Dioxide Level 33H, Anion Gap 0L, Blood Urea Nitrogen 20H, Creatinine 1.0, Estimat Glomerular Filtration Rate , Glucose Level 106, Calcium Level 9.0 Height (Feet): 5 Height (Inches): 3.00 Weight (Pounds): 181 General Appearance: lethargic EENT: normal ENT inspection Neck: normal alignment Cardiovascular: normal peripheral pulses, normal rate, regular rhythm Respiratory/Chest: chest wall non-tender, decreased breath sounds Abdomen: normal bowel sounds, non tender, soft Extremities: normal inspection Edema: no edema noted Arm (L), no edema noted Arm (R), no edema noted Leg (L), no edema noted Leg (R), no edema noted Pedal (L), no edema noted Pedal (R), no edema noted Generalized Neurologic: responsive, motor weakness Skin: normal pigmentation, warm/dry Sim Bello DO Sep 13, 2018 13:01
--- NOTE | 2018-09-13 15:04 | Pulmonology Progress Note ---
Assessment/Plan Problems: (1) Acute bronchitis (2) Pneumonitis (3) Diabetes mellitus (4) History of hypertension Assessment/Plan less cough improving slowly sputum is negative so far echo reviewed, EF 60% continue abx pt/ot dvt prophylaxis. Subjective ROS Limited/Unobtainable: No Constitutional: Reports: no symptoms HEENT: Repors: no symptoms Respiratory: Reports: no symptoms Allergies: Coded Allergies: No Known Allergies (Unverified , 09/08/18) Objective Last 24 Hour Vital Signs Date Time Temp Pulse Resp B/P (MAP) Pulse Ox O2 Delivery O2 Flow Rate FiO2 09/13/18 12:40 85 18 96 09/13/18 12:00 97.6 85 18 113/75 (88) 96 09/13/18 11:25 Room Air 21 09/13/18 11:25 Room Air 21 09/13/18 09:00 Nasal Cannula 3.0 09/13/18 08:20 61 20 98 Nasal Cannula 2.0 28 09/13/18 08:13 97 Nasal Cannula 2.0 28 09/13/18 08:13 55 18 Nasal Cannula 2.0 28 09/13/18 08:13 Nasal Cannula 2.0 28 09/13/18 08:12 55 18 97 Nasal Cannula 2.0 28 09/13/18 08:00 97.5 76 19 131/70 (90) 97 09/13/18 04:38 Nasal Cannula 2.0 28 09/13/18 04:37 Nasal Cannula 2.0 28 09/13/18 04:00 97.6 63 18 139/50 (79) 100 09/13/18 00:00 98.3 78 18 107/52 (70) 94 09/12/18 23:42 67 20 98 Nasal Cannula 2.0 28 09/12/18 23:33 78 20 97 Nasal Cannula 2.0 28 09/12/18 21:04 Nasal Cannula 2.0 28 09/12/18 21:03 Nasal Cannula 2.0 28 09/12/18 21:01 73 20 Nasal Cannula 2.0 28 09/12/18 21:01 97 Nasal Cannula 2.0 28 09/12/18 21:01 Nasal Cannula 2.0 28 09/12/18 21:00 Nasal Cannula 3.0 09/12/18 20:00 98.6 85 18 131/74 (93) 96 09/12/18 16:00 98.2 70 18 140/53 (82) 100 Intake and Output 09/12/18 09/13/18 19:00 07:00 Intake Total 150 ml Output Total 0 ml Balance 150 ml IV Total 150 ml Estimated Blood Loss 0 ml # Voids 4 Objective General Appearance: WD/WN HEENT: normocephalic, atraumatic Respiratory/Chest: chest wall non-tender, lungs clear Cardiovascular: normal peripheral pulses, normal rate Abdomen: normal bowel sounds, soft, non tender Extremities: no cyanosis Skin: no ulcers Laboratory Tests 09/13/18 06:20: White Blood Count 5.7, Red Blood Count 4.49L, Hemoglobin 13.7L, Hematocrit 40.5L , Mean Corpuscular Volume 90, Mean Corpuscular Hemoglobin 30.6, Mean Corpuscular Hemoglobin Concent 33.9, Red Cell Distribution Width 12.5, Platelet Count 152, Mean Platelet Volume 6.3L, Neutrophils (%) (Auto) 45.3, Lymphocytes ( %) (Auto) 38.7, Monocytes (%) (Auto) 12.8H, Eosinophils (%) (Auto) 2.0, Basophils (%) (Auto) 1.1, Sodium Level 141, Potassium Level 4.7, Chloride Level 108H, Carbon Dioxide Level 33H, Anion Gap 0L, Blood Urea Nitrogen 20H, Creatinine 1.0, Estimat Glomerular Filtration Rate , Glucose Level 106, Calcium Level 9.0 Current Medications Medications (Trade) Dose Ordered Sig/Elio Route PRN Reason Start Time Stop Time Status Last Admin Dose Admin Acetaminophen (Tylenol) 650 mg Q4H PRN ORAL FEVER (temp>100.5F) 09/09/18 21:45 10/08/18 13:44 Albuterol Sulfate (Proventil) 2.5 mg Q4HRT HHN 09/12/18 12:29 09/17/18 12:28 09/13/18 08:11 Dextrose (Dextrose 50%) 25 ml Q30M PRN IV Hypoglycemia 09/09/18 21:45 10/08/18 13:44 Dextrose (Dextrose 50%) 50 ml Q30M PRN IV Hypoglycemia 09/09/18 21:45 10/08/18 13:44 Heparin Sodium (Porcine) (Heparin 5000 units/ml) 5,000 units EVERY 12 HOURS SUBQ 09/10/18 09:00 10/08/18 20:59 09/13/18 09:11 Insulin Aspart (NovoLOG) BEFORE MEALS AND HS SUBQ 09/10/18 06:30 10/08/18 16:29 09/13/18 12:12 Lansoprazole (Prevacid) 30 mg BID ORAL 09/12/18 14:00 10/12/18 13:59 09/13/18 09:10 Levofloxacin (Levaquin) 500 mg DAILY ORAL 09/12/18 09:00 09/19/18 08:59 09/13/18 09:10 Ondansetron HCl (Zofran) 4 mg Q6H PRN IVP Nausea & Vomiting 09/10/18 01:45 10/08/18 13:44 Polyethylene Glycol (Miralax) 17 gm DAILYPRN PRN ORAL Constipation 09/10/18 13:45 10/08/18 13:44 Promethazine HCl/ Codeine (Phenergan with Codeine) 5 ml EVERY 6 HOURS ORAL 09/10/18 00:00 10/08/18 12:29 09/13/18 12:09 Sucralfate (Carafate) 1 gm AC+HS ORAL 09/11/18 16:30 10/11/18 16:29 09/13/18 12:09 Wolfgang Buchanan MD Sep 13, 2018 15:04
[2018-09-13] MEDS ORDERED: LEVAQUIN500 MG ORAL (15:07)
[2018-09-13] MEDS ORDERED: CARAFATE1 G1 ORAL (15:26)
[2018-09-13] MEDS ORDERED: LANSOPRAZOLE30 MG ORAL (15:26)
[2018-09-13 16:00] VITALS: BP 121/67
--- NOTE | 2018-09-13 17:09 | Infectious Diseases Prog Note ---
Assessment/Plan Assessment/Plan Assessment: Probable early PNA vs Acute bronchitis -CXR: Hepatomegaly. Mild interstitial prominence. No focal infiltrate or consolidation. -influenza sc neg -sp cx normal resp melissa Afebrile No leukocytosis DM2 HTN HLD Plan: -D/c PO levaquin #3 (abx d#6/5) and monitor off abx -09/10 SP Cefepime #4 -09/09 SP IV vancomycin #2 -f/u cx -Monitor CBC/CMP, temperatures Thank you for this consultation. Will continue to follow along with you. Discussed with RN. Subjective Allergies: Coded Allergies: No Known Allergies (Unverified , 09/08/18) Subjective afebrile at RA no leukocytosis feeling better for EGD today Objective Vital Signs Last 24 Hour Vital Signs Date Time Temp Pulse Resp B/P (MAP) Pulse Ox O2 Delivery O2 Flow Rate FiO2 09/13/18 16:00 97.5 81 18 121/67 (85) 97 09/13/18 15:23 Room Air 21 09/13/18 15:23 Room Air 21 09/13/18 12:40 85 18 96 09/13/18 12:00 97.6 85 18 113/75 (88) 96 09/13/18 11:25 Room Air 21 09/13/18 11:25 Room Air 21 09/13/18 09:00 Nasal Cannula 3.0 09/13/18 08:20 61 20 98 Nasal Cannula 2.0 28 09/13/18 08:13 97 Nasal Cannula 2.0 28 09/13/18 08:13 55 18 Nasal Cannula 2.0 28 09/13/18 08:13 Nasal Cannula 2.0 28 09/13/18 08:12 55 18 97 Nasal Cannula 2.0 28 09/13/18 08:00 97.5 76 19 131/70 (90) 97 09/13/18 04:38 Nasal Cannula 2.0 28 09/13/18 04:37 Nasal Cannula 2.0 28 09/13/18 04:00 97.6 63 18 139/50 (79) 100 09/13/18 00:00 98.3 78 18 107/52 (70) 94 09/12/18 23:42 67 20 98 Nasal Cannula 2.0 28 09/12/18 23:33 78 20 97 Nasal Cannula 2.0 28 09/12/18 21:04 Nasal Cannula 2.0 28 09/12/18 21:03 Nasal Cannula 2.0 28 09/12/18 21:01 73 20 Nasal Cannula 2.0 28 09/12/18 21:01 97 Nasal Cannula 2.0 28 09/12/18 21:01 Nasal Cannula 2.0 28 09/12/18 21:00 Nasal Cannula 3.0 09/12/18 20:00 98.6 85 18 131/74 (93) 96 Height (Feet): 5 Height (Inches): 3.00 Weight (Pounds): 181 Objective General Appearance: WD/WN Lines, tubes and drains: peripheral HEENT: normocephalic, atraumatic Neck: non-tender, normal alignment Respiratory/Chest: chest wall non-tender, rhonchi - left, rhonchi - right Cardiovascular/Chest: normal peripheral pulses, normal rate, regular rhythm Abdomen: normal bowel sounds, non tender Skin Exam: normal pigmentation 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 normal, no motor/sensory deficits Laboratory Tests Test 09/13/18 06:20 White Blood Count 5.7 K/UL (4.8-10.8) Red Blood Count 4.49 M/UL (4.70-6.10) L Hemoglobin 13.7 G/DL (14.2-18.0) L Hematocrit 40.5 % (42.0-52.0) L Mean Corpuscular Volume 90 FL (80-99) Mean Corpuscular Hemoglobin 30.6 PG (27.0-31.0) Mean Corpuscular Hemoglobin Concent 33.9 G/DL (32.0-36.0) Red Cell Distribution Width 12.5 % (11.6-14.8) Platelet Count 152 K/UL (150-450) Mean Platelet Volume 6.3 FL (6.5-10.1) L Neutrophils (%) (Auto) 45.3 % (45.0-75.0) Lymphocytes (%) (Auto) 38.7 % (20.0-45.0) Monocytes (%) (Auto) 12.8 % (1.0-10.0) H Eosinophils (%) (Auto) 2.0 % (0.0-3.0) Basophils (%) (Auto) 1.1 % (0.0-2.0) Sodium Level 141 MMOL/L (136-145) Potassium Level 4.7 MMOL/L (3.5-5.1) Chloride Level 108 MMOL/L (98-107) H Carbon Dioxide Level 33 MMOL/L (21-32) H Anion Gap 0 mmol/L (5-15) L Blood Urea Nitrogen 20 mg/dL (7-18) H Creatinine 1.0 MG/DL (0.55-1.30) Estimat Glomerular Filtration Rate mL/min (>60) Glucose Level 106 MG/DL (74-106) Calcium Level 9.0 MG/DL (8.5-10.1) Current Medications Medications (Trade) Dose Ordered Sig/Elio Route PRN Reason Start Time Stop Time Status Last Admin Dose Admin Acetaminophen (Tylenol) 650 mg Q4H PRN ORAL FEVER (temp>100.5F) 09/09/18 21:45 10/08/18 13:44 Albuterol Sulfate (Proventil) 2.5 mg Q4HRT HHN 09/12/18 12:29 09/17/18 12:28 09/13/18 08:11 Dextrose (Dextrose 50%) 25 ml Q30M PRN IV Hypoglycemia 09/09/18 21:45 10/08/18 13:44 Dextrose (Dextrose 50%) 50 ml Q30M PRN IV Hypoglycemia 09/09/18 21:45 10/08/18 13:44 Heparin Sodium (Porcine) (Heparin 5000 units/ml) 5,000 units EVERY 12 HOURS SUBQ 09/10/18 09:00 10/08/18 20:59 09/13/18 09:11 Insulin Aspart (NovoLOG) BEFORE MEALS AND HS SUBQ 09/10/18 06:30 10/08/18 16:29 09/13/18 12:12 Lansoprazole (Prevacid) 30 mg BID ORAL 09/12/18 14:00 10/12/18 13:59 09/13/18 17:04 Levofloxacin (Levaquin) 500 mg DAILY ORAL 09/12/18 09:00 09/19/18 08:59 09/13/18 09:10 Ondansetron HCl (Zofran) 4 mg Q6H PRN IVP Nausea & Vomiting 09/10/18 01:45 10/08/18 13:44 Polyethylene Glycol (Miralax) 17 gm DAILYPRN PRN ORAL Constipation 09/10/18 13:45 10/08/18 13:44 Promethazine HCl/ Codeine (Phenergan with Codeine) 5 ml EVERY 6 HOURS ORAL 09/10/18 00:00 10/08/18 12:29 09/13/18 17:04 Sucralfate (Carafate) 1 gm AC+HS ORAL 09/11/18 16:30 10/11/18 16:29 09/13/18 17:04 Adrienne Aquino M.D. Sep 13, 2018 17:09
--- NOTE | 2018-09-13 17:25 | NUR ---
CHARGE NURSE NOTES: ATTEMPTED TO CONTACT KAPIL GARCÍA COVER FOR DR. ROA, REGARDING CLEARANCE. AWAITING RESPONSE
--- NOTE | 2018-09-13 18:57 | NUR ---
NURSE NOTES: Received D/C order, all discharge assessments and instructions done, pt is stable, V/S stable, all ordered meds received from pharmacy and instructed to pt and given to pt. pt is aware about [facility] and given phone number to him. Pt verbally confirmed to understand all D/C instructions. pt's son Greg is aware about D/C. all belongings are with pt. waitiong for pt's son to pick him up. will continue to monitor.
--- NOTE | 2018-09-13 19:20 | NUR ---
NURSE NOTES: iv access D/C and pt left hospital with accompany of his son.
[2018-09-13] MEDS ORDERED: 1/2 NS 1000ml IV ONE (19:22)
[2018-09-13] MEDS ORDERED: NS 275ml ONE (19:22)
[2018-09-13] MEDS ORDERED: Tubing IV Secondary IV ONE (19:22)
--- NOTE | 2018-09-16 13:51 | Discharge Summary ---
Discharge Summary Discharge Summary _ DATE OF ADMISSION: 09/08/2018 DATE OF DISCHARGE: 09/13/2018 DISCHARGED BY: DR Bello REASON FOR ADMISSION: 83 years old male with past medical history of diabetes mellitus, hypertension, presented to emergency department with productive cough and increased difficulty breathing for approximately 3 days. Patient also reported chest tightness for few days, which was worsened earlier the morning, prior to presentation to ED. Upon evaluation vital signs wee stable. Laboratory workup revealed no leukocytosis, stable hemoglobin and hematocrit. Urinalysis was negative for evidence of UTI. Stable electrolytes and LFT. Troponin 0.003. Pro BNP 129. EKG revealed left anterior fascicular block with normal sinus rhythm. Chest x-ray demonstrated hepatomegaly, mild interstitial prominence, no focal infiltrate or consolidation. Patient was admitted for further management CONSULTANTS: boiler tender Dr. Crews pulmonary Dr. Buchanan ID specialist Dr. Rice GI specialist Dr. Britton [facility]: Patient initially admitted to telemetry floor. Echocardiogram revealed ejection fraction of 60-65% with mild left ventricular hypertrophy. No evidence of wall motion abnormality. Right ventricular systolic pressure of 29 [place] closely followed. Supplemental oxygen titrated to keep pulse oximetry above 92%. Pulmonary toilet was on standby as needed. Patient was on empiric antibiotic as per ID recommendation. Sputum culture was negative. Rapid influenza screen test was negative. Blood cultures were negative. Pulse oximetry was stable on room air. DVT prophylaxis provided. Antitussive provided as needed. Blood sugar was managed with metformin and sliding scale of insulin was on standby as needed. Hemoglobin A1 -6.3. DVT prophylaxis provided. Per boiler tender , dyspnea was possibly triggered by acute viral bronchitis. No cardiac stress was required at this time. Lipid panel stable. No need for antihypertensive medication at this time , blood pressure controlled with diet. GI specialist closely followed. Patient undergone upper endoscopy, which revealed hiatal hernia, distal esophagitis and gastritis, status post biopsy. Reflux measures were implemented. Patient started on PPI and Carafate. Plan to discontinue Carafate in 1-2 weeks. Diet was resumed and advanced as tolerated. Patient will need outpatient follow-up for colonoscopy. Stomach antrum biopsy revealed mild chronic gastritis , no H. pylori , no evidence of intestinal metaplasia , dysplasia and malignancy. Supportive care provided. Bowel regimen instituted. Patient stabilized and was ready for discharge home. FINAL DIAGNOSES: Acute bronchitis Possible early pneumonia Pneumonitis Diabetes mellitus History of hypertension - diet controlled Abdominal nicanor GERD DISCHARGE MEDICATIONS: See Medication Reconciliation list. DISCHARGE INSTRUCTIONS: Patient was discharged home . Follow up with primary care provider in one week. I have been assigned to dictate discharge summary for this account. I was not involved in the patient's management. Sandee Limon NP Sep 16, 2018 13:51
== END 2018-09-13 19:23 | disposition home or self-care (01) | DRG 195 ==
LOC: EMR 07:46 → 2W 10:35 → EDBEDREQ 10:48 → EMR 13:24 → 4E 09-09 22:01
PROC: 0DB78ZX Excision of Stomach, Pylorus, Via Natural or Artificial Opening Endoscopic, Diagnostic (ICD-10-PCS; principal; 2018-09-12 12:00)
DX: J18.9 Pneumonia, unspecified organism (principal); J20.9 Acute bronchitis, unspecified; I10 Essential (primary) hypertension; E11.9 Type 2 diabetes mellitus without complications; Z79.4 Long term (current) use of insulin; R10.9 Unspecified abdominal pain; K21.9 Gastro-esophageal reflux disease without esophagitis; E78.00 Pure hypercholesterolemia, unspecified; K29.70 Gastritis, unspecified, without bleeding
CPT/HCPCS: 36415; 71045; 71046; 80048; 80053; 80069; 81003; 82962; 83036; 83690; 83880; 84484; 85025; 85610; 85730; 86710; 87040; 87070; 87205; 93005; 93306; 94003; 94150; 94640; 94664; 94760; 99285; J1815; J7620